=== PATIENT | male | born 1935 | race Caucasian/White ===

== ENCOUNTER 2020-09-27 | Outpatient (REF) | payer MEDICARE, OTHER, SELFPAY | END 2020-09-27 00:01 | disposition home or self-care (01) | LOC: HO.VC | PROVIDERS: Visit Provider Internal Medicine | DX: Z23 Encounter for immunization (principal) | CPT/HCPCS: 0011A ==

== ENCOUNTER 2020-10-24 | Outpatient (REF) | payer MEDICARE, OTHER, SELFPAY | END 2020-10-24 00:01 | disposition home or self-care (01) | LOC: HO.VC | PROVIDERS: Visit Provider Internal Medicine | DX: Z23 Encounter for immunization (principal) | CPT/HCPCS: 0012A ==

== ENCOUNTER 2020-11-22 10:35 | Outpatient (REF) | payer MEDICARE, OTHER, SELFPAY ==
--- NOTE | ~2020-11-22 | XR_ITS ---
EXAMINATION: XR knee LT 3V CLINICAL INFORMATION: Reason for Exam M25.562 - Pain in left knee COMPARISON: None available at the time of this dictation. TECHNIQUE: frontal, lateral, tunnel and patella sunrise views FINDINGS: BONES: No fracture or dislocation is present. JOINTS: Narrowing of joint spaces and developed osteophytes from the edges of articular surfaces suggest degenerative osteoarthritis. There is a small knee joint effusion. 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 There are vascular calcifications. There is small knee joint effusion.
--- NOTE | ~2020-11-22 | XR_ITS ---
EXAMINATION: XR LUMBOSACRAL SPINE CLINICAL INFORMATION: Pain COMPARISON: Previous x-ray July 2010 TECHNIQUE: Three views of the lumbosacral spine. FINDINGS: There is curvature of the lumbar spine to the left. Bone alignment is otherwise normal. No fracture or dislocation is seen. There is evidence of multilevel degenerative disc disease, spondylosis and facet arthritis. There is evidence of atherosclerotic disease. XR/XR lumbar spine 2-3V IMPRESSION: Curvature of the lumbar spine to the left. Multilevel degenerative spondylosis, degenerative disc disease and facet arthritis. No fracture seen.
[2020-11-25 13:31] LABS: Levetiracetam Keppra 34.5 mcg/mL (12.0-46.0)
== END 2020-11-22 10:36 | disposition home or self-care (01) ==
LOC: HO.LAB 10:35
PROVIDERS: PCP Internal Medicine; Visit Provider Internal Medicine
DX: G40.909 Epilepsy, unspecified, not intractable, without status epilepticus (principal); M54.5 Low back pain; M25.562 Pain in left knee
CPT/HCPCS: 36415; 72100; 73562; 80177

== ENCOUNTER 2021-02-19 13:47 | Outpatient (RCR) | payer MEDICARE, OTHER, SELFPAY | END 2021-03-07 12:41 | disposition home or self-care (01) | LOC: HO.WCC 13:47 | PROVIDERS: PCP Internal Medicine; Visit Provider Physician Assistant | DX: S21.211A Laceration without foreign body of right back wall of thorax without penetration into thoracic cavity, initial encounter (principal); C44.529 Squamous cell carcinoma of skin of other part of trunk | CPT/HCPCS: 11106; 88304; 88305; 99212; 99213 ==

== ENCOUNTER → 2021-03-20 15:18 | Outpatient (BNVA) | payer MEDICARE, OTHER, SELFPAY | PROVIDERS: PCP Internal Medicine; Referring Provider Internal Medicine; Visit Provider Surgery | DX: C44.519 Basal cell carcinoma of skin of other part of trunk (principal); I10 Essential (primary) hypertension; E78.00 Pure hypercholesterolemia, unspecified; E55.9 Vitamin D deficiency, unspecified; Z88.5 Allergy status to narcotic agent; Z95.2 Presence of prosthetic heart valve | CPT/HCPCS: 99202 ==

== ENCOUNTER 2021-04-12 08:50 | Outpatient (REF) | payer MEDICARE, OTHER, SELFPAY ==
[2021-04-12 08:59] VITALS: BP 153/75; PULSE 60; RESP 16; TEMP 36.5; O2SAT 96
[2021-04-12 09:00] VITALS: BMI 22.2
--- NOTE | 2021-04-12 10:10 | P.OP_ITS ---
Operative Note Operative Note Date of Service: 04/12/21 Narrative: Preoperative diagnosis: Basal cell carcinoma of back Postoperative diagnosis: Same Procedure: Wide excision of basal cell carcinoma of right upper back, wide excision of lesion left lower back Surgeon: Mohsen Zamorano MD [employer]: No physician Anesthesia: Local Indications for procedure: 85-year-old male patient presenting with 2 nonhealing back wounds, 1 of which was found to have a basal cell carcinoma located at the right upper mid back a 2nd lesion which appears similar is located in the left lower back. He presents for excision of both lesions. Operative findings: Right mid back lesion measures 2 cm in diameter, left lower lesion measures approximately 1.5 cm in diameter. Specimen: Skin lesion of right mid back and left lower back Estimated blood loss: 10 mL Complications: None Procedure details: Patient was brought to the minor surgery suite placed in a prone position. The site of 2 lesions in the back were identified and confirmed by the patient. Informed consent was confirmed by the patient. The skin was prepped with Betadine and draped in a sterile fashion. Local anesthesia consisting of 1% lidocaine with epinephrine was infiltrated circumferentially around both lesions. Beginning in the right mid back lesion an elliptical incision was created using a 15 blade. This carried out through subcutaneous tissue. Margins of 5 mm was performed on the lesion there for the diameter was approximately 3 cm. The lesion was completely excised and sent to pathology for further examination. Dermis was then reapproximated using interrupted 3-0 Polysorb sutures and skin closed using interrupted 3-0 nylon sutures. Attention was then directed to the lesion in the left lower back. This again was excised using a 0.5 cm margin. Total excision size was 2 cm. Incision was carried out through subcutaneous tissue and around the lesion dermis was then reapproximated using interrupted 3-0 Polysorb sutures. Skin was closed using interrupted 3-0 nylon sutures. Sterile dressings consisting of 4 x 4 gauze and Tegaderm were then applied. The patient tolerated the procedure well. Sponge, instrument, needle counts reported as correct. Patient was discharged to home i n stable condition.
== END 2021-04-12 08:51 | disposition home or self-care (01) ==
LOC: HO.MS 08:50
PROVIDERS: PCP Internal Medicine; Visit Provider Surgery
PROC: (CPT 11603; principal; 2021-04-12 09:15)
DX: C44.519 Basal cell carcinoma of skin of other part of trunk (principal)
CPT/HCPCS: 11603; 11602; 88305

== ENCOUNTER → 2021-04-20 10:08 | Outpatient (BNVA) | payer MEDICARE, OTHER, SELFPAY | PROVIDERS: PCP Internal Medicine; Referring Provider Internal Medicine; Visit Provider Surgery | DX: C44.519 Basal cell carcinoma of skin of other part of trunk (principal); E78.00 Pure hypercholesterolemia, unspecified; E55.9 Vitamin D deficiency, unspecified; Z88.5 Allergy status to narcotic agent | CPT/HCPCS: 99212 ==

== ENCOUNTER → 2021-05-18 09:19 | Outpatient (BNVA) | payer MEDICARE, OTHER, SELFPAY | PROVIDERS: PCP Internal Medicine; Referring Provider Internal Medicine; Visit Provider Surgery | DX: Z48.3 Aftercare following surgery for neoplasm (principal); C44.519 Basal cell carcinoma of skin of other part of trunk | CPT/HCPCS: 99212 ==

== ENCOUNTER 2021-08-07 12:06 | Outpatient (REF) | payer MEDICARE, OTHER, SELFPAY ==
[2021-08-07 13:50] LABS: MANUAL DIFF FLAG NO
[2021-08-07 13:52] LABS: Appearance Urine CLEAR; Color Urine YELLOW; Glucose Urine UA NEG (NEG); Leukocyte Esterase Urine NEG (NEG); Nitrite Urine NEG (NEG); Specific Gravity - Urine >= 1.030 (1.005-1.025); UACC Culture Trigger NO; Urine Blood NEG (NEG); Urine Ketones NEG (NEG); Urine Protein 1+ MG/DL (NEG-TRACE)
[2021-08-07 13:55] LABS: Basophils Percent Auto 0.2 % (0-2); Eosinophils Absolute Auto 0.1 X10*3/uL (0.0-0.4); Eosinophils Percent Auto 2.3 % (0-4); Hematocrit 40.2 % (42.0-52.0); Hemoglobin 12.6 g/dl (14.0-18.0); Imm Gran Abs Auto 0.01 X10*3/uL (0.00-0.03); Imm Gran Pct Auto 0.2 % (0.0-0.4); Lymphocytes Absolute Auto 1.2 X10*3/uL (1.2-4.9); Lymphocytes Percent Auto 28.2 % (20-40); Mean Corpuscular HGB Conc 31.3 g/dl (31.0-36.0); Mean Corpuscular Hemoglobin 29.4 pg (27.0-33.0); Mean Corpuscular Volume 93.7 fL (80.0-98.0); Mean Platelet Volume 11.4 fL (9.4-12.4); Monocytes Absolute Auto 0.4 X10*3/uL (0.1-1.2); Monocytes Percent Auto 9.1 % (2-11); Neutrophils Absolute Auto 2.6 x10*3/uL (2.0-8.3); Platelet Count 191 X10*3/uL (160-400); Red Blood Count 4.29 X10*6/uL (4.60-5.80); White Blood Count 4.4 X10*3/uL (4.8-10.8)
[2021-08-07 14:06] LABS: Mucus Urine 1+ /LPF
[2021-08-07 14:07] LABS: Hyaline Casts Urine 0-2 /LPF; WBC Urine 0-2 /HPF (0-4)
[2021-08-07 14:08] LABS: RBC Urine 0 /HPF (0)
[2021-08-07 14:32] LABS: Alanine Aminotransferase 54 U/L (0-40); Albumin Level 4.1 g/dL (3.5-5.0); Alkaline Phosphatase 137 U/L (39-117); Anion Gap 13 (12-20); Aspartate Amino Transferase 50 U/L (5-37); Bilirubin Total 0.6 mg/dL (0.0-1.0); Blood Urea Nitrogen 20 mg/dL (9-16); Calcium 9.4 mg/dL (8.4-10.2); Carbon Dioxide 25 mmol/L (22-29); Chloride 108 mmol/L (96-108); Cholesterol 161 mg/dL; Estimated Glomerular Filt Rate 56; Glucose Fasting 117 mg/dL (60-99); HDL Cholesterol 50 mg/dL; LDL Cholesterol Calculated 90 mg/dl; Potassium 4.3 mmol/L (3.3-5.1); Sodium 142 mmol/L (135-145); Triglycerides 108 mg/dL
[2021-08-07 14:40] LABS: TSH reflex Free T4 1.17 uIU/mL (0.32-4.0); Vitamin D 25-OH Total 14.9 ng/mL (>30)
[2021-08-07 14:53] LABS: Folate > 20.0 ng/mL (> or = 4.0); Vitamin B12 353 pg/mL (200-900)
== END 2021-08-07 12:07 | disposition home or self-care (01) ==
LOC: HO.HMGCLDS 12:06
PROVIDERS: PCP Internal Medicine; Visit Provider Internal Medicine
DX: I10 Essential (primary) hypertension (principal); E55.9 Vitamin D deficiency, unspecified; E53.8 Deficiency of other specified B group vitamins; E78.00 Pure hypercholesterolemia, unspecified
CPT/HCPCS: 36415; 80053; 80061; 81001; 82306; 82607; 82746; 84443; 85025

== ENCOUNTER 2021-09-06 12:39 | Outpatient (REF) | payer MEDICARE, OTHER, SELFPAY ==
[2021-09-06 13:58] LABS: MANUAL DIFF FLAG NO
[2021-09-06 14:05] LABS: Basophils Absolute Auto 0.1 X10*3/uL (0.0-0.2); Basophils Percent Auto 0.9 % (0-2); Eosinophils Absolute Auto 0.2 X10*3/uL (0.0-0.4); Eosinophils Percent Auto 2.9 % (0-4); Hematocrit 36.6 % (42.0-52.0); Hemoglobin 11.7 g/dl (14.0-18.0); Imm Gran Abs Auto 0.02 X10*3/uL (0.00-0.03); Imm Gran Pct Auto 0.4 % (0.0-0.4); Lymphocytes Percent Auto 18.6 % (20-40); Mean Corpuscular Volume 93.8 fL (80.0-98.0); Mean Platelet Volume 11.7 fL (9.4-12.4); Monocytes Absolute Auto 0.7 X10*3/uL (0.1-1.2); Monocytes Percent Auto 12.3 % (2-11); Neutrophils Absolute Auto 3.6 x10*3/uL (2.0-8.3); Neutrophils Percent Auto 64.9 % (45-73); Platelet Count 200 X10*3/uL (160-400); Red Cell Distribution Width 14.8 % (11.0-16.0); White Blood Count 5.5 X10*3/uL (4.8-10.8)
[2021-09-06 14:22] LABS: Appearance Urine CLEAR; Color Urine YELLOW; Glucose Urine UA NEG (NEG); Leukocyte Esterase Urine NEG (NEG); Nitrite Urine NEG (NEG); PH 5.5 (5.0-8.0); Urine Blood NEG (NEG); Urine Ketones NEG (NEG); Urine Protein NEG (NEG-TRACE)
[2021-09-06 14:30] LABS: B Type Natriuretic Peptide 159 pg/mL (<100)
[2021-09-06 14:46] LABS: Alanine Aminotransferase 18 U/L (0-40); Albumin Level 3.5 g/dL (3.5-5.0); Alkaline Phosphatase 109 U/L (39-117); Anion Gap 9 (12-20); Aspartate Amino Transferase 24 U/L (5-37); Bilirubin Total 0.6 mg/dL (0.0-1.0); Blood Urea Nitrogen 30 mg/dL (9-16); Calcium 9.4 mg/dL (8.4-10.2); Carbon Dioxide 30 mmol/L (22-29); Chloride 106 mmol/L (96-108); Cholesterol 180 mg/dL; Estimated Glomerular Filt Rate 37; Glucose Fasting 132 mg/dL (60-99); HDL Cholesterol 45 mg/dL; LDL Cholesterol Calculated 110 mg/dl; Potassium 4.7 mmol/L (3.3-5.1); Sodium 140 mmol/L (135-145); Total Protein 6.4 g/dL (6.5-8.0); Triglycerides 128 mg/dL
[2021-09-06 14:55] LABS: TSH reflex Free T4 1.28 uIU/mL (0.32-4.0); Vitamin D 25-OH Total 16.7 ng/mL (>30)
== END 2021-09-06 12:40 | disposition home or self-care (01) ==
LOC: HO.HMGCLDS 12:39
PROVIDERS: PCP Internal Medicine; Visit Provider Internal Medicine
DX: E78.00 Pure hypercholesterolemia, unspecified (principal); E55.9 Vitamin D deficiency, unspecified; I11.0 Hypertensive heart disease with heart failure; I50.9 Heart failure, unspecified
CPT/HCPCS: 36415; 80053; 80061; 81003; 82306; 83880; 84443; 85025

== ENCOUNTER 2021-12-17 09:56 | Outpatient (REF) | payer MEDICARE, OTHER, SELFPAY ==
[2021-12-17 11:35] LABS: MANUAL DIFF FLAG NO
[2021-12-17 12:00] LABS: Basophils Absolute Auto 0.1 X10*3/uL (0.0-0.2); Basophils Percent Auto 0.6 % (0-2); Eosinophils Absolute Auto 0.4 X10*3/uL (0.0-0.4); Eosinophils Percent Auto 4.3 % (0-4); Estimated Average Glucose 117 mg/dL; Hematocrit 39.2 % (42.0-52.0); Hemoglobin 12.4 g/dl (14.0-18.0); Hemoglobin A1c % 5.7 %; Imm Gran Abs Auto 0.03 X10*3/uL (0.00-0.03); Imm Gran Pct Auto 0.4 % (0.0-0.4); Lymphocytes Percent Auto 11.7 % (20-40); Mean Corpuscular HGB Conc 31.6 g/dl (31.0-36.0); Mean Corpuscular Hemoglobin 29.5 pg (27.0-33.0); Mean Corpuscular Volume 93.3 fL (80.0-98.0); Mean Platelet Volume 11.4 fL (9.4-12.4); Monocytes Absolute Auto 0.9 X10*3/uL (0.1-1.2); Monocytes Percent Auto 11.4 % (2-11); Neutrophils Absolute Auto 5.8 x10*3/uL (2.0-8.3); Neutrophils Percent Auto 71.6 % (45-73); Platelet Count 184 X10*3/uL (160-400); Red Cell Distribution Width 13.2 % (11.0-16.0); White Blood Count 8.1 X10*3/uL (4.8-10.8)
[2021-12-17 12:24] LABS: B Type Natriuretic Peptide 306 pg/mL (<100)
[2021-12-17 12:28] LABS: Alanine Aminotransferase 9 U/L (0-40); Albumin Level 3.7 g/dL (3.5-5.0); Alkaline Phosphatase 121 U/L (39-117); Anion Gap 11 (12-20); Appearance Urine CLEAR; Aspartate Amino Transferase 17 U/L (5-37); Blood Urea Nitrogen 17 mg/dL (9-16); Calcium 9.2 mg/dL (8.4-10.2); Carbon Dioxide 27 mmol/L (22-29); Chloride 106 mmol/L (96-108); Cholesterol 205 mg/dL; Color Urine YELLOW; Estimated Glomerular Filt Rate > 60; Glucose Fasting 85 mg/dL (60-99); Glucose Urine UA NEG (NEG); HDL Cholesterol 54 mg/dL; LDL Cholesterol Calculated 132 mg/dl; Leukocyte Esterase Urine NEG (NEG); Nitrite Urine NEG (NEG); PH 6.5 (5.0-8.0); Potassium 4.3 mmol/L (3.3-5.1); Sodium 140 mmol/L (135-145); Specific Gravity - Urine 1.015 (1.005-1.025); Total Protein 6.5 g/dL (6.5-8.0); Triglycerides 95 mg/dL; Urine Blood NEG (NEG); Urine Ketones NEG (NEG); Urine Protein NEG (NEG-TRACE)
[2021-12-17 12:31] LABS: TSH reflex Free T4 0.99 uIU/mL (0.32-4.0); Vitamin D 25-OH Total 12.9 ng/mL (>30)
[2021-12-17 12:37] LABS: Folate 8.7 ng/mL (> or = 4.0); Vitamin B12 204 pg/mL (200-900)
== END 2021-12-17 09:57 | disposition home or self-care (01) ==
LOC: HO.HMGCLDS 09:56
PROVIDERS: Visit Provider Internal Medicine
DX: I11.0 Hypertensive heart disease with heart failure (principal); I50.9 Heart failure, unspecified; E55.9 Vitamin D deficiency, unspecified; E53.8 Deficiency of other specified B group vitamins; E78.00 Pure hypercholesterolemia, unspecified; R73.01 Impaired fasting glucose
CPT/HCPCS: 36415; 80053; 80061; 81003; 82306; 82607; 82746; 83036; 83880; 84443; 85025

== ENCOUNTER 2022-10-09 10:45 | Outpatient (REF) | payer MEDICARE, OTHER, SELFPAY ==
[2022-10-09 14:01] LABS: MANUAL DIFF FLAG NO
[2022-10-09 14:13] LABS: Appearance Urine Clear; Basophils Absolute Auto 0.1 X10*3/uL (0.0-0.2); Basophils Percent Auto 0.7 % (0-2); Color Urine Yellow; Eosinophils Absolute Auto 0.2 X10*3/uL (0.0-0.4); Eosinophils Percent Auto 2.4 % (0-4); Glucose Urine UA Negative (Negative); Hematocrit 37.5 % (42.0-52.0); Hemoglobin 11.9 g/dl (14.0-18.0); Imm Gran Abs Auto 0.02 X10*3/uL (0.00-0.03); Imm Gran Pct Auto 0.3 % (0.0-0.4); Leukocyte Esterase Urine Negative (Negative); Lymphocytes Absolute Auto 1.4 X10*3/uL (1.2-4.9); Lymphocytes Percent Auto 20.4 % (20-40); Mean Corpuscular HGB Conc 31.7 g/dl (31.0-36.0); Mean Corpuscular Hemoglobin 29.6 pg (27.0-33.0); Mean Corpuscular Volume 93.3 fL (80.0-98.0); Monocytes Absolute Auto 0.8 X10*3/uL (0.1-1.2); Monocytes Percent Auto 11.5 % (2-11); Neutrophils Absolute Auto 4.6 x10*3/uL (2.0-8.3); Neutrophils Percent Auto 64.7 % (45-73); Nitrite Urine Negative (Negative); Platelet Count 237 X10*3/uL (160-400); Red Blood Count 4.02 X10*6/uL (4.60-5.80); Red Cell Distribution Width 13.4 % (11.0-16.0); Specific Gravity - Urine 1.015 (1.005-1.025); Urine Blood Negative (Negative); Urine Ketones Negative (Negative); Urine Protein Negative (Neg-Trace); White Blood Count 7.1 X10*3/uL (4.8-10.8)
[2022-10-09 14:44] LABS: Alanine Aminotransferase 10 U/L (0-40); Albumin Level 3.6 g/dL (3.5-5.0); Alkaline Phosphatase 130 U/L (39-117); Anion Gap 15 (12-20); Aspartate Amino Transferase 19 U/L (5-37); Bilirubin Total 0.5 mg/dL (0.0-1.0); Blood Urea Nitrogen 21 mg/dL (9-16); Carbon Dioxide 25 mmol/L (22-29); Chloride 109 mmol/L (96-108); Cholesterol 209 mg/dL; Estimated Glomerular Filt Rate > 60; Glucose Fasting 98 mg/dL (60-99); HDL Cholesterol 55 mg/dL; LDL Cholesterol Calculated 136 mg/dl; Potassium 4.4 mmol/L (3.3-5.1); Sodium 145 mmol/L (135-145); Total Protein 6.1 g/dL (6.5-8.0); Triglycerides 90 mg/dL
[2022-10-09 15:03] LABS: Folate 9.2 ng/mL (> or = 4.0); TSH reflex Free T4 1.46 uIU/mL (0.32-4.0); Vitamin B12 242 pg/mL (200-900); Vitamin D 25-OH Total 7.1 ng/mL (>30)
[2022-10-13 16:38] LABS: Levetiracetam Keppra 41.2 mcg/mL (6.0-46.0)
== END 2022-10-09 10:46 | disposition home or self-care (01) ==
LOC: HO.HMGCLDS 10:45
PROVIDERS: Visit Provider Internal Medicine
DX: I10 Essential (primary) hypertension (principal); E78.00 Pure hypercholesterolemia, unspecified; E55.9 Vitamin D deficiency, unspecified; G40.909 Epilepsy, unspecified, not intractable, without status epilepticus; E53.8 Deficiency of other specified B group vitamins; R41.3 Other amnesia; R30.0 Dysuria
CPT/HCPCS: 36415; 80053; 80061; 80177; 81003; 82306; 82607; 82746; 84443; 85025

== ENCOUNTER 2023-04-12 11:32 | Outpatient (AMB) | payer MEDICARE, OTHER, SELFPAY ==
[2023-04-12 12:58] VITALS: BP 138/76; PULSE 70; TEMP 36.6; O2SAT 98; BMI 21.4
--- NOTE | 2023-04-12 12:58 | AM.OFFWIN_ITS ---
Intake Vital Signs 04/12/23 12:58 Height 5 ft 10 in Weight 149 lb BMI 21.4 BP 138/76 Blood Pressure Location Lt brachial Position Sitting Pulse 70 Pulse Source Pulse Oximeter Temp 97.8 F Temp Source Temporal Artery Scan Pulse Oximetry (%) 98 Intake Visit Reasons: EP Rash Intake Note: pt is here for c/o rash Patient Tobacco Use Status: Never used Tobacco Allergies morphine Allergy (Unknown, Verified 04/12/23 12:58) nausea and vomiting oxycodone Allergy (Unknown, Verified 04/12/23 12:58) nausea and vomiting Do you need a note to return to daycare/school/sports/work: No HPI EP Rash HPI Details Patient is a is an 87-year-old male comes to the walk-in clinic complaining of pruritic rash to both his hands, with the left worse than the right, the forearms his collarbone area, and to his lower legs bilaterally. He states he lives at home with his who keeps his house and back complete c lean, however he did have a brace today it rehab and was discharged a little while prior to the symptoms starting. No prior history of rash. Denies allergies. States that it is exceptionally itchy, especially at night, and he is unable to stop scratching it. No report of fever chills, malaise or myalgias, or other significant associated symptoms. [facility] Medical History Benign essential hypertension COPD (chronic obstructive pulmonary disease) DISH (diffuse idiopathic skeletal hyperostosis) Epilepsy GERD without esophagitis HFrEF (heart failure with reduced ejection fraction) Impaired fasting glucose Keratotic lesion Left knee pain Low back pain Overweight (BMI 25.0-29.9) Pure hypercholesterolemia Vitamin D deficiency Surgical History Aortic valve replaced History of carpal tunnel release History of inguinal hernia repair Hx of cervical discectomy S/P hip arthroscopy Family History Father Cancer Mother Medical history unknown Social History Housing: House Alcohol intake: former Patient Tobacco Use Status: Never used Tobacco e-Cigarette/Vaping Use: Never Used Second Hand Smoke Exposure: Yes service: No Current occupational status: retired Cognitive needs: No Hearing needs: No Vision needs: Yes (reading glasses) Review of Systems Const All systems reviewed & are unremarkable except as noted in HPI and below Physical Exam Vital Signs: Last Vital Signs Temp 97.8 F 04/12/23 12:58 Pulse 70 04/12/23 12:58 BP 138/76 04/12/23 12:58 Pulse Ox 98 04/12/23 12:58 BMI result Body Mass Index 21.4 Skin Other: Patient has an excoriated and thickened pruritic maculopapular rash, most notably to the hands and feet/chau areas, that is open in some areas due to his scratching. There is some surrounding erythema and edema, especially to the toes. Assessment & Plan Assessment & Plan (1) Pruritic erythematous rash: Code(s): L29.8 - Other pruritus Plan Patient recently released from rehab, and states that symptoms started soon afterwards. The rash appears to be a scabies infestation to the left foot, left hand, as well as less so to the right hand and to his left collarbone area. There are few areas that are extremely thickened and excoriated, and warm to the touch, so a course of bailey Keflex was written also. He should consider probiotic use with this. He states that his keeps his home exceptionally clean, and we discussed continuing to clean well, as well as washing linen and clothes in hot water and high heat stock drier tender. I wrote him for permethrin cream, and he will use tonight, sparing the face, and again in 2 weeks if it seems like there is still a live infestation persisting. He does have a boardinghouse keeper appointment in just 4 days, so fortunately he will have further evaluation for this. But he knows that he can follow-up at the walk-in in the meantime as needed. Medications: New cephalexin 500 mg PO BID 10 days 20 caps 0RF permethrin 5% apply second treatment 14 days after first treatment if live lice remain 1 appl topical Q14D 60 grams 0RF hydroxyzine pamoate (Vistaril) 25 mg PO BEDTIME PRN 20 caps 0RF itching Coding Level of Care Code Est Pt Level 4 (98185) Diagnoses Pruritic erythematous rash L29.8
== END 2023-04-12 14:30 | disposition home or self-care (01) ==
PROVIDERS: PCP Internal Medicine; Visit Provider Physician Assistant Medical
DX: L29.8 Other pruritus (principal)
CPT/HCPCS: 99214

== ENCOUNTER 2023-04-24 14:30 | Outpatient (AMB) | payer MEDICARE, OTHER, SELFPAY ==
[2023-04-24 14:32] VITALS: BP 122/86; PULSE 66; O2SAT 92; BMI 21.8
--- NOTE | 2023-04-24 14:32 | MHC.PC.OV ---
Vital Signs 04/24/23 14:32 04/24/23 15:00 Height 5 ft 10 in Weight 152 lb BMI 21.8 BP 122/86 Blood Pressure Location Lt brachial Position Sitting Pulse 66 92 Pulse Source Pulse Oximeter Palpation Temp Source Skin Pulse Oximetry (%) 92 Oxygen Delivery Method Room Air Intake Visit Reasons: SOB, swollen ankles Intake Note: pt states bilateral ankle swelling X1 month and SOB Ripening Room Hand Required: No Allergies morphine Allergy (Unknown, Verified 04/24/23 14:43) nausea and vomiting oxycodone Allergy (Unknown, Verified 04/24/23 14:43) nausea and vomiting Medication List - Last Reconciled 04/24/23 by LOLA Whitfield albuterol sulfate 90 mcg/actuation 2 puffs PO TID-QID PRN apixaban (Eliquis) 2.5 mg PO BID carvedilol 12.5 mg PO BID cholecalciferol (vitamin D3) 25 mcg PO DAILY donepezil 10 mg PO BEDTIME 90 days fluticasone propion-salmeterol 250-50 mcg/dose (Advair Diskus) 1 inh inhalation BID furosemide 20 mg PO DAILY 90 days hydroxyzine pamoate (Vistaril) 25 mg PO BEDTIME PRN levetiracetam 500 mg PO BID Lipitor (atorvastatin) 40 mg PO DAILY 90 days NS lorazepam Take 1 tablet 30 minutes before procedure as needed for anxiety. May repeat x 1 dose after 10 to 15 minutes if needed. 1 day omeprazole 20 mg PO BID 90 days permethrin 5% 1 appl topical Q14D 2 doses tramadol 50 mg PO Q8H PRN 30 days Tobacco use date assessed: 04/24/23 Fall risk assessment: No Falls in past year Last assessed Fall Risk: 04/24/23 HPI SOB, swollen ankles HPI Details Patient is an 87-year-old male presents today for the same day visit due to shortness of breath with activity and swelling in ankles for the past [address] Parikh. Medical history significant for low back pain, GERD, hypercholesterolemia, COPD, hypertension, heart failure, memory impairment among others. Patient reports that he is followed by pulmonology due to COPD at [facility]. Patient reports that he was in the hospital 02/2023 [facility] for dizziness, some paperwork available from [facility], patient was diagnosed with atrial flutter and started on Eliquis, his carvedilol was increased to 12.5 mg b.i.d.. Ejection fraction 30-40%. Patient reports that he has cardiology at [facility] and he will be seen them in 2 weeks, will request records from cardiology. Also patient reports that his Lasix was stopped in the hospital although when reviewing hospital note patient should continue on Lasix daily p.r.n.. Today, patient reports he had nurse come to his house and he told her about his symptoms and nurse was concerned and told him to follow-up with provider. Patient denies chest pain or wheezing, reports shortness of breath on exertion, and swelling in his ankles, he never had swelling in his ankles before. [facility] Medical History Benign essential hypertension COPD (chronic obstructive pulmonary disease) DISH (diffuse idiopathic skeletal hyperostosis) Epilepsy GERD without esophagitis HFrEF (heart failure with reduced ejection fraction) Impaired fasting glucose Keratotic lesion Left knee pain Low back pain Overweight (BMI 25.0-29.9) Pure hypercholesterolemia Vitamin D deficiency Surgical History Aortic valve replaced History of carpal tunnel release History of inguinal hernia repair Hx of cervical discectomy S/P hip arthroscopy Family History Father Cancer Mother Medical history unknown Social History Housing: House Alcohol intake: former Patient Tobacco Use Status: Never used Tobacco e-Cigarette/Vaping Use: Never Used Second Hand Smoke Exposure: Yes service: No Current occupational status: retired Cognitive needs: No Hearing needs: No Vision needs: Yes (reading glasses) Questionnaire Thrive Questionnaire Date Thrive assessed: 02/03/23 AUDIT C Alcohol Use Questionnaire (AUDIT-C) 1. How often do you have a drink containing alcohol?: Never 3. How often do you have six or more drinks on one occasion?: Never Total Score: 0 Score Reviewed/Action Taken: No CHARLY-7 AMB Questionnaire CHARLY-7 Date CHALRY - 7 assessed: 02/03/23 Source: Developed by Drs. Arthur Mittal, Farzana Cervantes, Bladimir Shah and colleagues, with an educational sumaya from [employer]. Review of Systems Const Denies body aches, Denies chills, Denies fever(s) and Denies headache(s) Eyes Denies change in vision ENT Denies dizziness, Denies otalgia, Denies headache(s), Denies nasal discharge, Denies sinus pain and Denies sore throat Card Denies chest pain, Denies edema, Reports leg edema, Denies lightheadedness, Denies dyspnea and Reports dyspnea on exertion Resp Denies cough, Denies dyspnea, Reports dyspnea on exertion and Denies wheezing GI Denies abdominal pain Denies dysuria Musc Denies myalgias Skin/Breast Denies rash Neuro Denies dizziness and Denies headache(s) Aller/Immun Denies wheezing Physical exam (Primary Care) Vital Signs: Last Vital Signs Pulse 92 04/24/23 15:00 BP 122/86 04/24/23 14:32 Pulse Ox 92 04/24/23 14:32 Oxygen Delivery Method Room Air 04/24/23 14:32 BMI result Body Mass Index 21.8 Tobacco/Smoking Status: Tobacco use Status Tobacco use date assessed 04/24/23 04/24/23 14:52 Patient Tobacco Use Status Never used Tobacco 04/24/23 14:52 e-Cigarette/Vaping Use Never Used 04/24/23 14:52 Thrive Assessment: Date of Thrive Assessment Date Thrive assessed 02/03/23 04/24/23 14:52 Const General: cooperative and no acute distress Orientation/consciousness: patient oriented x3 HENMT Head: Yes normocephalic and Yes atraumatic Mouth: oropharynx normal and moist mucous membranes Throat: Yes posterior oropharynx normal Eyes General: appearance normal, both eyes and all related structures Pupils: Equal, round and reactive pupils present Neck Neck: Yes normal visual inspection, Yes full ROM and Yes no lymphadenopathy Resp Effort & Inspection: normal respiratory effort and able to speak in complete sentences Auscultation: clear to auscultation bilaterally, no crackles, no rales, no rhonchi and no wheezes Cardio Rate: regular rate Rhythm: regular rhythm Heart sounds: S1 normal heart sound present, S2 normal heart sound present and no murmurs GI Auscultation: normal bowel sounds Neuro General: patient oriented x3 Cranial nerves: Yes Equal, round and reactive pupils present Gait exam (Neuro): Normal gait present Extrem Other: Bilateral ankle with trace edema General: Yes full ROM Assessment and Plan Assessment & Plan (1) Dyspnea: Code(s): R06.00 - Dyspnea, unspecified Plan: Will obtain chest x-ray Blood work Continue inhalers p.r.n. Continue to follow-up with pulmonology at [facility] (2) HFrEF (heart failure with reduced ejection fraction): Code(s): I50.20 - Unspecified systolic (congestive) heart failure Plan: EF 30-40% 02/2023 Lungs are clear to auscultation, bilateral ankle with trace edema Blood work and chest x-ray ordered Will obtain records from [facility] cardiology-patient reports next appointment in 2 weeks Patient reports he has not been taking his Lasix for the past 1 month, according to discharge notes patient still should be on Lasix daily p.r.n. Patient is to start Lasix 20 mg daily for 3 days and call his Cardiology for clarification Signs and symptoms reviewed when to notify provider go to the emergency department (3) Atrial flutter: Code(s): I48.92 - Unspecified atrial flutter Plan: On Eliquis and carvedilol Plan Will notify up blood work results and chest x-ray Signs and symptoms reviewed when to notify provider or go to the emergency department. Patient agreed with the plan. Orders: Orders Complete Blood Count Auto Diff Today R06.00 - Dyspnea, unspecified B Type Natriuretic Peptide Today R06.00 - Dyspnea, unspecified Comprehensive Met. Panel Today R06.00 - Dyspnea, unspecified XR chest 2V Today R06.00 - Dyspnea, unspecified Coding Level of Care Code Est Pt Level 3 (37053) Diagnoses Dyspnea R06.00 HFrEF (heart failure with reduced ejection fraction) I50.20 Atrial flutter I48.92
[2023-04-24 15:00] VITALS: PULSE 92
== END 2023-04-24 15:56 | disposition home or self-care (01) ==
PROVIDERS: PCP Internal Medicine; Visit Provider Nurse Practitioner Family
DX: R06.00 Dyspnea, unspecified (principal); I50.20 Unspecified systolic (congestive) heart failure; I48.92 Unspecified atrial flutter
CPT/HCPCS: 99213

== ENCOUNTER 2023-04-24 15:22 | Outpatient (REF) | payer MEDICARE, OTHER, SELFPAY ==
--- NOTE | ~2023-04-24 | XR_ITS ---
EXAMINATION: XR CHEST CLINICAL INFORMATION: Are 87-year-old male with shortness of breath Referral COMPARISON: 07/25/2016 TECHNIQUE: 2 views of the chest were obtained. FINDINGS: Patient is status post median sternotomy for CABG procedure. There is low lung volume bilaterally with small bilateral pleural effusion and fluid seen in the fissures. There is vascular redistribution. No evidence of infiltrates. XR/XR chest 2V IMPRESSION: CHF with pleural effusion.
[2023-04-24 15:55] LABS: MANUAL DIFF FLAG NO
[2023-04-24 16:31] LABS: Basophils Absolute Auto 0.1 X10*3/uL (0.0-0.2); Basophils Percent Auto 0.6 % (0-2); Eosinophils Absolute Auto 0.2 X10*3/uL (0.0-0.4); Eosinophils Percent Auto 2.2 % (0-4); Hematocrit 37.2 % (42.0-52.0); Imm Gran Abs Auto 0.03 X10*3/uL (0.00-0.03); Imm Gran Pct Auto 0.3 % (0.0-0.4); Lymphocytes Absolute Auto 1.4 X10*3/uL (1.2-4.9); Lymphocytes Percent Auto 13.7 % (20-40); Mean Corpuscular HGB Conc 32.3 g/dl (31.0-36.0); Mean Corpuscular Hemoglobin 29.4 pg (27.0-33.0); Mean Corpuscular Volume 91.2 fL (80.0-98.0); Mean Platelet Volume 10.4 fL (9.4-12.4); Monocytes Absolute Auto 0.9 X10*3/uL (0.1-1.2); Monocytes Percent Auto 8.2 % (2-11); Neutrophils Absolute Auto 7.9 x10*3/uL (2.0-8.3); Platelet Count 293 X10*3/uL (160-400); Red Blood Count 4.08 X10*6/uL (4.60-5.80); Red Cell Distribution Width 15.1 % (11.0-16.0); White Blood Count 10.5 X10*3/uL (4.8-10.8)
[2023-04-24 17:02] LABS: B Type Natriuretic Peptide 363 pg/mL (<100)
[2023-04-24 17:12] LABS: Alanine Aminotransferase 13 U/L (0-40); Albumin Level 3.8 g/dL (3.5-5.0); Alkaline Phosphatase 146 U/L (39-117); Anion Gap 15 (12-20); Aspartate Amino Transferase 19 U/L (5-37); Bilirubin Total 0.6 mg/dL (0.0-1.0); Blood Urea Nitrogen 21 mg/dL (9-16); Calcium 9.7 mg/dL (8.4-10.2); Carbon Dioxide 22 mmol/L (22-29); Chloride 108 mmol/L (96-108); Estimated Glomerular Filt Rate > 60; Glucose Random 100 mg/dL (60-115); Potassium 4.9 mmol/L (3.3-5.1); Sodium 140 mmol/L (135-145)
== END 2023-04-24 15:23 | disposition home or self-care (01) ==
LOC: HO.XRAY 15:22
PROVIDERS: Nurse Practitioner Family; PCP Internal Medicine; Visit Provider Internal Medicine
DX: R06.00 Dyspnea, unspecified (principal)
CPT/HCPCS: 36415; 71046; 80053; 83880; 85025

== ENCOUNTER 2023-05-26 09:24 | Outpatient (REF) | payer MEDICARE, OTHER, SELFPAY ==
[2023-05-26 11:28] LABS: Appearance Urine Clear; Color Urine Yellow; Glucose Urine UA Negative (Negative); Leukocyte Esterase Urine Negative (Negative); Nitrite Urine Negative (Negative); PH 5.5 (5.0-9.0); Urine Blood Negative (Negative); Urine Ketones Negative (Negative); Urine Protein Negative (Neg-Trace)
[2023-05-26 11:33] LABS: MANUAL DIFF FLAG NO
[2023-05-26 11:55] LABS: Basophils Absolute Auto 0.1 X10*3/uL (0.0-0.2); Basophils Percent Auto 0.5 % (0-2); Eosinophils Absolute Auto 0.2 X10*3/uL (0.0-0.4); Eosinophils Percent Auto 1.6 % (0-4); Hemoglobin 12.2 g/dl (14.0-18.0); Imm Gran Abs Auto 0.04 X10*3/uL (0.00-0.03); Imm Gran Pct Auto 0.4 % (0.0-0.4); Lymphocytes Absolute Auto 1.5 X10*3/uL (1.2-4.9); Lymphocytes Percent Auto 15.5 % (20-40); Mean Corpuscular HGB Conc 32.1 g/dl (31.0-36.0); Mean Corpuscular Hemoglobin 29.5 pg (27.0-33.0); Monocytes Absolute Auto 1.3 X10*3/uL (0.1-1.2); Monocytes Percent Auto 13.5 % (2-11); Neutrophils Absolute Auto 6.5 x10*3/uL (2.0-8.3); Neutrophils Percent Auto 68.5 % (45-73); Platelet Count 224 X10*3/uL (160-400); Red Blood Count 4.13 X10*6/uL (4.60-5.80); Red Cell Distribution Width 14.7 % (11.0-16.0); White Blood Count 9.4 X10*3/uL (4.8-10.8)
[2023-05-26 12:37] LABS: B Type Natriuretic Peptide 197 pg/mL (<100)
[2023-05-26 13:00] LABS: Alanine Aminotransferase 12 U/L (0-40); Albumin Level 3.6 g/dL (3.5-5.0); Alkaline Phosphatase 119 U/L (39-117); Anion Gap 12 (12-20); Aspartate Amino Transferase 17 U/L (5-37); Blood Urea Nitrogen 29 mg/dL (9-16); Calcium 9.3 mg/dL (8.4-10.2); Carbon Dioxide 28 mmol/L (22-29); Chloride 103 mmol/L (96-108); Cholesterol 159 mg/dL (<200); Estimated Glomerular Filt Rate 47; Glucose Fasting 80 mg/dL (60-99); HDL Cholesterol 45 mg/dL (>40); LDL Cholesterol Calculated 96 mg/dL (<100); Potassium 3.9 mmol/L (3.3-5.1); Sodium 139 mmol/L (135-145); Total Protein 6.6 g/dL (6.5-8.0); Triglycerides 92 mg/dL (<150)
[2023-05-26 13:01] LABS: Vitamin D 25-OH Total 83.7 ng/mL (>30)
== END 2023-05-26 09:25 | disposition home or self-care (01) ==
LOC: HO.HMGCLDS 09:24
PROVIDERS: PCP Internal Medicine; Visit Provider Internal Medicine
DX: I11.0 Hypertensive heart disease with heart failure (principal); I50.9 Heart failure, unspecified; R30.0 Dysuria; E55.9 Vitamin D deficiency, unspecified; E78.00 Pure hypercholesterolemia, unspecified
CPT/HCPCS: 36415; 80053; 80061; 81003; 82306; 83880; 85025

== ENCOUNTER 2023-06-04 14:38 | Outpatient (AMB) | payer MEDICARE, OTHER, SELFPAY ==
[2023-06-04 14:47] VITALS: BP 116/76; PULSE 106; O2SAT 91; BMI 20.9
--- NOTE | 2023-06-04 14:47 | MHC.PC.OV ---
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 Accompanied by: Spouse Allergies morphine Allergy (Unknown, Verified 06/04/23 15:55) nausea and vomiting oxycodone Allergy (Unknown, Verified 06/04/23 15:55) nausea and vomiting Medication List - Last Reconciled 06/04/23 by Braxton Parikh MD albuterol sulfate 90 mcg/actuation 2 puffs PO TID-QID PRN apixaban (Eliquis) 2.5 mg PO BID carvedilol 12.5 mg PO BID cholecalciferol (vitamin D3) 25 mcg PO DAILY donepezil 10 mg PO BEDTIME 90 days fluticasone propion-salmeterol 250-50 mcg/dose (Advair Diskus) 1 inh inhalation BID furosemide 20 mg PO DAILY 90 days hydroxyzine pamoate (Vistaril) 25 mg PO BEDTIME PRN levetiracetam 500 mg PO BID Lipitor (atorvastatin) 40 mg PO DAILY 90 days NS lorazepam Take 1 tablet 30 minutes before procedure as needed for anxiety. May repeat x 1 dose after 10 to 15 minutes if needed. 1 day omeprazole 20 mg PO BID 90 days permethrin 5% 1 appl topical Q14D 2 doses tramadol 50 mg PO Q8H PRN 30 days Tobacco use date assessed: 06/04/23 Fall risk assessment: 1 Fall in past year Last assessed Fall Risk: 06/04/23 Dental Screening Dental Screen Date: 06/04/23 Did you have a dental visit in the last 12 months?: Yes Did you have a dental problem in the last 6 months where you did not have access to dental care?: No Was dental information given to patient?: Patient has dentist HPI hyperlipidemia, COPD, lumbar DDD, Cervical DDD HPI Details Patient comes in today for his follow up visit States that he feels okay and that his PT and VNA services were just extended for another 6 weeks He was admitted to [facility] for a few days early last month for apparent CHF exacerbation - BNP was over 5000 at the time - and was treated with IV Furosemide with significant improvement He currently remains on Furosemide 20 mg QD (Furosemide was previously discontinued in February 2023 for ZARA) Relates that he was seen by cardiology for follow up a few weeks ago and was started back on Valsartan at 40 mg QD (Valsartan was also previously discontinued during a hospital admission last year in 2021 for ZARA) States that he just took 1 dose of the 40 mg Valsartan and was asked to stop taking it immediately when his BP dropped too low and he started feeling very dizzy and weak Notes that he has been feeling okay since he stopped taking the medication He currently denies any headaches or dizziness Denies any chest pains; still has WOLF but states that he is able to manage his activities and he does stop and rest when he starts to get tired or SOB He is currently trying to downsize their house and selling it home as he and his plans to move into assisted living ([facility]) in [place] soon No nausea/vomiting, no abdominal pain No change in bowel habits noted He is still experiencing frequent joint pains and low back pain and is planning to see Dr. Duque at [facility] for his left knee pain and lower back pain soon Had his follow up labs done last week - to discuss his results plan to move into assisted living in [facility] Medical History HFrEF (heart failure with reduced ejection fraction) Impaired fasting glucose Overweight (BMI 25.0-29.9) Vitamin D deficiency Benign essential hypertension DISH (diffuse idiopathic skeletal hyperostosis) COPD (chronic obstructive pulmonary disease) Pure hypercholesterolemia GERD without esophagitis Epilepsy Keratotic lesion Low back pain Left knee pain Surgical History Hx of cervical discectomy Aortic valve replaced History of carpal tunnel release History of inguinal hernia repair S/P hip arthroscopy Family History Father Cancer Mother Medical history unknown Social History Housing: House Alcohol intake: former Patient Tobacco Use Status: Never used Tobacco e-Cigarette/Vaping Use: Never Used Second Hand Smoke Exposure: Yes service: No Current occupational status: retired Cognitive needs: No Hearing needs: No Vision needs: Yes (reading glasses) Questionnaire PHQ-9 Over the last 2 weeks, how often have you been bothered by any of the following problems? 1. Little interest or pleasure in doing things: not at all 2. Feeling down, depressed, or hopeless: not at all 3. Trouble falling or staying asleep, or sleeping too much: not at all 4. Feeling tired or having little energy: not at all 5. Poor appetite or overeating: not at all 6. Feeling bad about yourself - or that you are a failure or have let yourself or your family down: not at all 7. Trouble concentrating on things, such as reading the newspaper or watching television: not at all 8. Moving or speaking so slowly that other people could have noticed. Or the opposite - being so fidgety or restless that you have been moving around a lot more than usual: not at all 9. Thoughts that you would be better off or of hurting yourself in some way: not at all Total score: 0 Depression Screening Interpretation: Negative Depression Screening Done: Yes 80986 - PHQ-9 Billing: Yes Source: Developed by Drs. Arthur Mittal, Farzana Cervantes, Bladimir Shah and colleagues, with an educational sumaya from [employer]. Thrive Questionnaire Date Thrive assessed: 06/04/23 I am a: Patient What is your living situation today?: I have a steady place to live Within the past 12 months, did the food you bought not last and you didn't have the money to get more?: Never true Within the past 12 months, did you worry whether your food would run out before you got money to buy more?: Never true Do you have trouble paying for medicines?: No Do you have trouble getting transportation to medical appointments?: No Do you have trouble paying your heating and electricity bill?: No Do you have trouble taking care of your child, family member or friend?: No Do you have trouble with day-to-day activities such as bathing, preparing meals, shopping, managing finances, etc.?: No Are you currently unemployed and looking for a job?: No Are you interested in more education?: No Please select the resources that you would like help with: None Currently or been in a relationship where the following occur: no concerns reported AUDIT C Alcohol Use Questionnaire (AUDIT-C) 1. How often do you have a drink containing alcohol?: Never 3. How often do you have six or more drinks on one occasion?: Never Total Score: 0 Score Reviewed/Action Taken: Yes CHARLY-7 AMB Questionnaire CHARLY-7 Date CHARLY - 7 assessed: 06/04/23 Feeling nervous, anxious, or on edge: 0 = Not at all Not being able to stop or control worryin = Not at all Worrying too much about different things: 0 = Not at all Trouble relaxin = Not at all Being so restless that it is hard to sit still: 0 = Not at all Becoming easily annoyed or irritable: 0 = Not at all Feeling afraid as if something awful might happen: 0 = Not at all Total CHARLY-7 score (0-4 normal; 5-9 mild; 10-14 moderate; 15-21 severe): 0 Source: Developed by Drs. Arthur Mittal, Farzana Cervantes, Bladimir Shah and colleagues, with an educational sumaya from [employer]. Review of Systems Const Denies chills, Reports fatigue, Denies fever(s) and Denies headache(s) ENT Denies dysphagia, Denies dizziness, Denies otalgia, Denies headache(s), Reports neck pain (chronic), Denies odynophagia and Denies sore throat Card Denies chest pain, Denies palpitations and Reports dyspnea on exertion Resp Denies chest congestion, Denies cough and Reports dyspnea on exertion GI Denies abdominal pain (but occasional pain over his left inguinal area), Denies constipation, Denies dysphagia, Denies heartburn, Denies diarrhea, Denies nausea, Denies odynophagia and Denies vomiting Denies dysuria, Denies nocturia and Denies urinary frequency Musc Reports back pain (especially over the left lower back - chronic), Reports arthralgias (left knee and over the left hip), Reports neck pain (chronic) and Reports stiffness Skin/Breast Denies rash Neuro Denies dizziness and Denies headache(s) Psych Reports anxiety Endo Reports fatigue and Denies palpitations Physical exam (Primary Care) Vital Signs: Last Vital Signs Pulse 106 H 06/04/23 14:47 BP 116/76 06/04/23 14:47 Pulse Ox 91 L 06/04/23 14:47 Oxygen Delivery Method Room Air 06/04/23 14:47 BMI result Body Mass Index 20.9 Tobacco/Smoking Status: Tobacco use Status Tobacco use date assessed 06/04/23 06/04/23 14:49 Patient Tobacco Use Status Never used Tobacco 06/04/23 14:49 e-Cigarette/Vaping Use Never Used 06/04/23 14:49 PHQ-9: PHQ-9 Score PHQ-9: Total score 0 06/04/23 15:56 Depression Screening Interpretation: Negative Thrive Assessment: Date of Thrive Assessment Date Thrive assessed 06/04/23 06/04/23 14:49 Currently or been in a relationship where the following occur: no concerns reported Const General: no acute distress and alert HENMT Ears: TM's normal bilaterally and EAC's normal Throat: Yes posterior oropharynx normal and Yes tonsils normal (no TP congestion noted) Neck Neck: Yes no lymphadenopathy and Yes tender Resp Auscultation: no rales, no wheezes and diminished lung sounds (slightly) bilateral Cardio Rate: regular rate Rhythm: regular rhythm Heart sounds: no murmurs GI Palpation (GI): Soft to palpation and nontender Auscultation: normal bowel sounds Back/Spine/Pelvis Cervical Spine: Cervical spine tenderness Thoracic/Lumbar Spine: lumbar spinal tenderness Skin Rashes: no rashes Extrem General: Yes no clubbing, cyanosis or edema Right upper extremity: Extremity exam: right hand Details: tenderness Location: of the thumb, of the 2nd digit, of the 3rd digit, of the 4th digit and of the 5th digit and no swelling Left upper extremity: hand Details: tenderness Location: of the thumb, of the 2nd digit, of the 3rd digit, of the 4th digit and of the 5th digit and no swelling Left lower extremity: hip/thigh Details: tenderness Location: of the hip and knee Details: tenderness; no swelling Results Reviewed Results Reviewed: Laboratory Tests 05/26/23 05/26/23 05/26/23 09:37 09:37 09:41 WBC 9.4 Hgb 12.2 L Hct 38.0 L Plt Count 224 Sodium 139 Potassium 3.9 D Creatinine 1.42 H Estimated GFR 47 Fasting Glucose 80 Calcium 9.3 AST 17 ALT 12 B-Natriuretic Peptide 197 H Triglycerides 92 Cholesterol 159 LDL Cholesterol, Calc 96 HDL Cholesterol 45 25-OH Vitamin D Total 83.7 Ur Specific [place] 1.020 Urine Protein Negative Urine Glucose (UA) Negative Urine Blood Negative Assessment and Plan Assessment & Plan (1) HFrEF (heart failure with reduced ejection fraction): Code(s): I50.20 - Unspecified systolic (congestive) heart failure Plan: Patient currently appears compensated - LVEF in February 2023 was mostly unchanged from a couple of years ago (echocardiogram done back in July 2021 revealed EF of 35 to 40% with moderate global hypokinesia and moderate diastolic dysfunction) Was admitted to [facility] back in February 2023 for new onset atrial flutter and 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 and was found to have a BNP of 5046 - symptoms responded to IV diuresis Currently remains on low dose Furosemide at 20 mg QD - could not tolerate higher doses due to ZARA Continue Carvedilol 12.5 mg BID Reinforced fluid restriction but cautioned as well about staying adequately hydrated due to his CKD - reminded that he has to find some balance to his fluid intake (2) Atrial flutter: Code(s): I48.92 - Unspecified atrial flutter Qualifiers: Atrial flutter type: unspecified Qualified Code(s): I48.92 - Unspecified atrial flutter Plan: Patient is currently in sinus rhythm Continue Eliquis 2.5 mg BID for thromboembolism prophylaxis (3) 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 Duque (4) DISH (diffuse idiopathic skeletal hyperostosis): Code(s): M48.10 - Ankylosing hyperostosis [[place]], site unspecified Plan: Continue Tramadol 50 mg TID PRN for pain Follow-up with Neurosurgery as scheduled - now sees Dr. Torres at [facility] Relates that he was sent for an open MRI of his lumbar spine but he could not even tolerate the wider confines of the open MRI States that he will have to be knocked out completely for him to be able to complete the procedure - advised that he has to be able to follow some instructions while he is in the machine and getting his scan done so getting knocked out for the procedure is not an option at this time Repeat lumbar spine x-rays done a few months ago in January 2023 revealed advanced multilevel degenerative changes in the lumbar spine, with an L3 anterior compression that may have possibly progressed from last year (2021) (5) Osteoarthritis of left hip: Code(s): M16.12 - Unilateral primary osteoarthritis, left hip Qualifiers: Osteoarthritis type: primary Qualified Code(s): M16.12 - Unilateral primary osteoarthritis, left hip Plan: Left hip x-rays done at [facility] in January 2023 revealed (+) mild degenerative joint space loss Will consider referring him to orthopedics for further management if his hip pain gets worse (6) Benign essential hypertension: Code(s): I10 - Essential (primary) hypertension Plan: Reinforced low sodium diet - goal is systolic BP of at least 140 to 150 mm or less Continue Carvedilol 12.5 mg BID and Furosemide 20 mg QD Valsartan 40 mg was discontinued sometime last year due to ZARA and patient could not tolerate Rx (severe dizziness and weakness) when cardiology tried to start him back on this a few weeks ago (7) Pure hypercholesterolemia: Code(s): E78.00 - Pure hypercholesterolemia, unspecified Plan: Results of his labs done last week reviewed and discussed with patient Reinforced low cholesterol diet Continue Atorvastatin 40 mg once a day; was also previously on Ezetimibe 10 mg QD but patient is unclear as to when he stopped taking this Will recheck his labs and fasting lipids in 3 months for follow up (8) COPD (chronic obstructive pulmonary disease): Code(s): J44.9 - Chronic obstructive pulmonary disease, unspecified Qualifiers: COPD type: unspecified COPD Qualified Code(s): J44.9 - Chronic obstructive pulmonary disease, unspecified Plan: Reportedly had acute hypoxic respiratory failure last year when he presented to the ER at [facility] with symptoms of progressive dyspnea and heart failure Was admitted to [facility] in February 2023 for new onset atrial flutter and again last month for CHF exacerbation - states that he has been stable Chest x-rays last done in January 2023 revealed (+) right pleural effusion Continue Advair Diskus 250-50 mcg 1 inhalation BID, ProAir HFA 2 puffs 4 times a day as needed and Anoro Ellipta Follow-up with pulmonary (Dr. Echeverria) at [facility] as scheduled (9) Impaired fasting glucose: Code(s): R73.01 - Impaired fasting glucose Plan: In-office HgbA1c was previously at 6.0% and was normal at 5.7% when last checked in November 2021 - will continue to monitor closely Reinforced low calorie diet / exercise as tolerated (10) Epilepsy: Code(s): G40.909 - Epilepsy, unspecified, not intractable, without status epilepticus Qualifiers: Epilepsy type: unspecified Intractability: not intractable Status epilepticus: without status epilepticus Qualified Code(s): G40.909 - Epilepsy, unspecified, not intractable, without status epilepticus Plan: No seizures lately Continue Levetiracetam 500 mg BID Follow-up with Neurology as scheduled (11) Dementia: Code(s): F03.90 - Unspecified dementia, unspecified severity, without behavioral disturbance, psychotic disturbance, mood disturbance, and anxiety Qualifiers: Dementia type: unspecified type Dementia behavioral disturbance: without behavioral disturbance Qualified Code(s): F03.90 - Unspecified dementia without behavioral disturbance Plan: Continue Donepezil 10 mg QHS Follow up with neurology as scheduled (12) GERD without esophagitis: Code(s): K21.9 - Gastro-esophageal reflux disease without esophagitis Plan: Dietary restrictions reinforced Continue Omeprazole 20 mg QD (13) Vitamin D deficiency: Code(s): E55.9 - Vitamin D deficiency, unspecified Plan: He is advised that his Vitamin D level is now high on his recent labs done last week and to start cutting back on his Vitamin D3 2000 units to just 1 tablet every other day Will recheck his Vitamin D level in 3 months for follow up (14) Basal cell carcinoma: Code(s): C44.91 - Basal cell carcinoma of skin, unspecified Qualifiers: Basal cell carcinoma location: unspecified site Qualified Code(s): C44.91 - Basal cell carcinoma of skin, unspecified Plan: S/P excision of BCC lesions from his back by Dr. Zamorano a few months ago Follow-up with dermatology as scheduled - was started on Imiquimod cream but patient developed a rash and he stopped using the cream a few months ago Plan Follow up in 3 months Orders: Orders Complete Blood Count Auto Diff 3 Months I10 - Essential (primary) hypertension, N28.9 - Disorder of kidney and ureter, unspecified Lipid Panel 3 Months E78.00 - Pure hypercholesterolemia, unspecified, N28.9 - Disorder of kidney and ureter, unspecified TSH reflex Free T4 3 Months E78.00 - Pure hypercholesterolemia, unspecified, N28.9 - Disorder of kidney and ureter, unspecified UA CC w/rflx Micro + Cult 3 Months N28.9 - Disorder of kidney and ureter, unspecified, R30.0 - Dysuria Hemoglobin A1c 24 R73.01 - Impaired fasting glucose Comprehensive [place]. Panel Fast 3 Months E78.00 - Pure hypercholesterolemia, unspecified, N28.9 - Disorder of kidney and ureter, unspecified B Type Natriuretic Peptide 3 Months I50.9 - Heart failure, unspecified, N28.9 - Disorder of kidney and ureter, unspecified Vitamin D 25-OH Total 3 Months E55.9 - Vitamin D deficiency, unspecified, N28.9 - Disorder of kidney and ureter, unspecified Levetiracetam Keppra 09/04/23 G40.909 - Epilepsy, unspecified, not intractable, without status epilepticus Coding Level of Care Code Est Pt Level 4 (72654) Diagnoses HFrEF (heart failure with reduced ejection fraction) I50.20 Atrial flutter, unspecified type I48.92 Atrial flutter type: unspecified 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 M47.12 DISH (diffuse idiopathic skeletal hyperostosis) M48.10 Primary osteoarthritis of left hip M16.12 Osteoarthritis type: primary Benign essential hypertension I10 Pure hypercholesterolemia E78.00 Chronic obstructive pulmonary disease, unspecified COPD type J44.9 COPD type: unspecified COPD Impaired fasting glucose R73.01 Nonintractable epilepsy without status epilepticus, unspecified epilepsy type G40.909 Epilepsy type: unspecified Intractability: not intractable Status epilepticus: without status epilepticus Dementia without behavioral disturbance, unspecified dementia type F03.90 Dementia type: unspecified type Dementia behavioral disturbance: without behavioral disturbance GERD without esophagitis K21.9 Vitamin D deficiency E55.9 Basal cell carcinoma (BCC), unspecified site C44.91 Basal cell carcinoma location: unspecified site
== END 2023-06-04 16:26 | disposition home or self-care (01) ==
PROVIDERS: PCP Internal Medicine; Visit Provider Internal Medicine
DX: I11.0 Hypertensive heart disease with heart failure (principal); I50.20 Unspecified systolic (congestive) heart failure; I48.92 Unspecified atrial flutter; J44.9 Chronic obstructive pulmonary disease, unspecified; G40.909 Epilepsy, unspecified, not intractable, without status epilepticus; F03.90 Unspecified dementia, unspecified severity, without behavioral disturbance, psychotic disturbance, mood disturbance, and anxiety
CPT/HCPCS: 99214

== ENCOUNTER 2023-08-20 10:09 | Outpatient (REF) | payer MEDICARE, OTHER, SELFPAY ==
[2023-08-20 13:13] LABS: MANUAL DIFF FLAG NO
[2023-08-20 13:28] LABS: Appearance Urine Clear; Color Urine Yellow; Glucose Urine UA Negative (Negative); Leukocyte Esterase Urine Negative (Negative); Nitrite Urine Negative (Negative); PH 5.5 (5.0-9.0); Urine Blood Negative (Negative); Urine Ketones Negative (Negative); Urine Protein Negative (Neg-Trace)
[2023-08-20 13:34] LABS: Hematocrit 38.6 % (42.0-52.0); Hemoglobin 12.3 g/dl (14.0-18.0); Mean Corpuscular HGB Conc 31.9 g/dl (31.0-36.0); Mean Corpuscular Hemoglobin 29.3 pg (27.0-33.0); Mean Corpuscular Volume 91.9 fL (80.0-98.0); Mean Platelet Volume 11.1 fL (9.4-12.4); Platelet Count 191 X10*3/uL (160-400); Red Cell Distribution Width 14.8 % (11.0-16.0); White Blood Count 7.6 X10*3/uL (4.8-10.8)
[2023-08-20 13:35] LABS: Basophils Absolute Auto 0.1 X10*3/uL (0.0-0.2); Basophils Percent Auto 0.7 % (0-2); Eosinophils Absolute Auto 0.3 X10*3/uL (0.0-0.4); Eosinophils Percent Auto 3.5 % (0-4); Imm Gran Abs Auto 0.02 X10*3/uL (0.00-0.03); Imm Gran Pct Auto 0.3 % (0.0-0.4); Lymphocytes Absolute Auto 1.6 X10*3/uL (1.2-4.9); Lymphocytes Percent Auto 21.3 % (20-40); Monocytes Absolute Auto 0.8 X10*3/uL (0.1-1.2); Monocytes Percent Auto 10.8 % (2-11); Neutrophils Absolute Auto 4.8 x10*3/uL (2.0-8.3); Neutrophils Percent Auto 63.4 % (45-73)
[2023-08-20 13:38] LABS: Estimated Average Glucose 128 mg/dL; Hemoglobin A1c % 6.1 % (<6.0)
[2023-08-20 14:33] LABS: B Type Natriuretic Peptide 190 pg/mL (<100)
[2023-08-20 17:09] LABS: Alanine Aminotransferase 21 U/L (0-40); Albumin Level 3.7 g/dL (3.5-5.0); Alkaline Phosphatase 143 U/L (39-117); Anion Gap 12 (12-20); Aspartate Amino Transferase 23 U/L (5-37); Bilirubin Total 0.5 mg/dL (0.0-1.0); Blood Urea Nitrogen 30 mg/dL (9-16); Calcium 9.7 mg/dL (8.4-10.2); Carbon Dioxide 29 mmol/L (22-29); Chloride 106 mmol/L (96-108); Cholesterol 171 mg/dL (<200); Estimated Glomerular Filt Rate 44; Glucose Fasting 97 mg/dL (60-99); HDL Cholesterol 51 mg/dL (>40); LDL Cholesterol Calculated 103 mg/dL (<100); Potassium 4.8 mmol/L (3.3-5.1); Sodium 142 mmol/L (135-145); Total Protein 6.9 g/dL (6.5-8.0); Triglycerides 87 mg/dL (<150)
[2023-08-20 17:10] LABS: Vitamin D 25-OH Total 78.4 ng/mL (>30)
[2023-08-24 19:33] LABS: Levetiracetam Keppra 54.4 mcg/mL (6.0-46.0)
== END 2023-08-20 10:10 | disposition home or self-care (01) ==
LOC: HO.HMGCLDS 10:09
PROVIDERS: PCP Internal Medicine; Visit Provider Internal Medicine
DX: I11.0 Hypertensive heart disease with heart failure (principal); I50.9 Heart failure, unspecified; G40.909 Epilepsy, unspecified, not intractable, without status epilepticus; R73.01 Impaired fasting glucose; E55.9 Vitamin D deficiency, unspecified; N28.9 Disorder of kidney and ureter, unspecified; E78.00 Pure hypercholesterolemia, unspecified; R30.0 Dysuria
CPT/HCPCS: 36415; 80053; 80061; 80177; 81003; 82306; 83036; 83880; 84443; 85025

== ENCOUNTER 2023-10-24 09:41 | Outpatient (AMB) | payer MEDICARE, OTHER, SELFPAY ==
[2023-10-24 09:50] VITALS: BP 112/68; PULSE 84; O2SAT 99; BMI 21.7
--- NOTE | 2023-10-24 09:50 | A.OFFPC_ITS ---
Vital Signs 10/24/23 09:50 Height 5 ft 10 in Weight 151 lb 6 oz BMI 21.7 BP 112/68 Blood Pressure Location Lt brachial Position Sitting Pulse 84 Pulse Source Pulse Oximeter Pulse Oximetry (%) 99 Oxygen Delivery Method Room Air Intake Visit Reasons: 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: No Accompanied by: Self / Same As Patient Allergies morphine Allergy (Unknown, Verified 10/24/23 10:53) nausea and vomiting oxycodone Allergy (Unknown, Verified 10/24/23 10:53) nausea and vomiting Medication List - Last Reconciled 10/24/23 by Braxton Parikh MD albuterol sulfate 90 mcg/actuation 2 puffs PO TID-QID PRN amoxicillin 2,000 mg (4 x 500 mg) PO ONCE 1 day apixaban (Eliquis) 2.5 mg PO BID carvedilol 12.5 mg PO BID cholecalciferol (vitamin D3) 25 mcg PO DAILY donepezil 10 mg PO BEDTIME 90 days fluticasone propion-salmeterol 250-50 mcg/dose (Advair Diskus) 1 inh inhalation BID furosemide 20 mg PO DAILY 90 days hydroxyzine pamoate (Vistaril) 25 mg PO BEDTIME PRN levetiracetam 500 mg PO BID Lipitor (atorvastatin) 40 mg PO DAILY 90 days NS lorazepam Take 1 tablet 30 minutes before procedure as needed for anxiety. May repeat x 1 dose after 10 to 15 minutes if needed. 1 day nirmatrelvir-ritonavir 300 mg (150 mg x 2)-100 mg (Paxlovid) 3 ea PO PER PKG DIR 5 days omeprazole 20 mg PO BID 90 days permethrin 5% 1 appl topical Q14D 2 doses tramadol 50 mg PO Q8H PRN 30 days Tobacco use date assessed: 10/24/23 Fall risk assessment: No Falls in past year Last assessed Fall Risk: 10/24/23 Dental Screening Dental Screen Date: 10/24/23 Did you have a dental visit in the last 12 months?: Yes Did you have a dental problem in the last 6 months where you did not have access to dental care?: No Was dental information given to patient?: Patient has dentist [facility] HPI Details Patient comes in today for his [facility] follow up visit He was admitted to [facility] briefly for a few days earlier this week when he was brought to the ER there from the assisted living facility where he is currently residing with his for increasing SOB He reportedly required initiation of BiPAP when he was admitted but he was able to wean off the BiPAP quickly with improvement of his symptoms with medical management He was eventually discharged back to the [facility] in [place] with VNA services Patient states that aside from increased anxiety, he feels okay and his michelle athing has been stable/controlled since his discharge from the hospital a few days ago He will be seeing Dr. Echeverria at [facility] in a couple of weeks on 11/04/23 for pulmonary consultation/follow up His states that patient has not been sleeping well at night lately due to his increasing anxiety He denies any headaches or dizziness; denies any fever Denies any chest pains or increased SOB No nausea/vomiting, no abdominal pain No change in bowel habits noted He had some follow up labs done back in July 2023 for us and for nephrology [facility] Medical History HFrEF (heart failure with reduced ejection fraction) Impaired fasting glucose Overweight (BMI 25.0-29.9) Vitamin D deficiency Benign essential hypertension DISH (diffuse idiopathic skeletal hyperostosis) COPD (chronic obstructive pulmonary disease) Pure hypercholesterolemia GERD without esophagitis Epilepsy Keratotic lesion Low back pain Left knee pain Surgical History Hx of cervical discectomy Aortic valve replaced History of carpal tunnel release History of inguinal hernia repair S/P hip arthroscopy Family History Father Cancer Mother Medical history unknown Social History Housing: House Alcohol intake: former Patient Tobacco Use Status: Never used Tobacco e-Cigarette/Vaping Use: Never Used Second Hand Smoke Exposure: Yes service: No Current occupational status: retired Cognitive needs: No Hearing needs: No Vision needs: Yes (reading glasses) Questionnaire PHQ-9 Over the last 2 weeks, how often have you been bothered by any of the following problems? 1. Little interest or pleasure in doing things: not at all 2. Feeling down, depressed, or hopeless: not at all 3. Trouble falling or staying asleep, or sleeping too much: not at all 4. Feeling tired or having little energy: not at all 5. Poor appetite or overeating: not at all 6. Feeling bad about yourself - or that you are a failure or have let yourself or your family down: not at all 7. Trouble concentrating on things, such as reading the newspaper or watching television: not at all 8. Moving or speaking so slowly that other people could have noticed. Or the opposite - being so fidgety or restless that you have been moving around a lot more than usual: not at all 9. Thoughts that you would be better off or of hurting yourself in some way: not at all Total score: 0 Depression Screening Interpretation: Negative Depression Screening Done: Yes 73153 - PHQ-9 Billing: Yes Source: Developed by Drs. Arthur Mittal, Farzana Cervantes, Bladimir Shah and colleagues, with an educational sumaya from [employer]. Thrive Questionnaire Date Thrive assessed: 10/24/23 I am a: Patient What is your living situation today?: I have a steady place to live Within the past 12 months, did the food you bought not last and you didn't have the money to get more?: Never true Within the past 12 months, did you worry whether your food would run out before you got money to buy more?: Never true Do you have trouble paying for medicines?: No Do you have trouble getting transportation to medical appointments?: No Do you have trouble paying your heating and electricity bill?: No Do you have trouble taking care of your child, family member or friend?: No Do you have trouble with day-to-day activities such as bathing, preparing meals, shopping, managing finances, etc.?: No Are you currently unemployed and looking for a job?: No Are you interested in more education?: No Please select the resources that you would like help with: None Currently or been in a relationship where the following occur: no concerns reported THRIVE Score: 0 AUDIT C Alcohol Use Questionnaire (AUDIT-C) 1. How often do you have a drink containing alcohol?: Never 3. How often do you have six or more drinks on one occasion?: Never Total Score: 0 Score Reviewed/Action Taken: Yes CHARLY-7 AMB Questionnaire CHARLY-7 Date CHARLY - 7 assessed: 10/24/23 Feeling nervous, anxious, or on edge: 0 = Not at all Not being able to stop or control worryin = Not at all Worrying too much about different things: 0 = Not at all Trouble relaxin = Not at all Being so restless that it is hard to sit still: 0 = Not at all Becoming easily annoyed or irritable: 0 = Not at all Feeling afraid as if something awful might happen: 0 = Not at all Total CHARLY-7 score (0-4 normal; 5-9 mild; 10-14 moderate; 15-21 severe): 0 Source: Developed by Drs. Arthur Mittal, Farzana Cervantes, Bladimir Shah and colleagues, with an educational sumaya from [employer]. Review of Systems Const Denies chills, Reports difficulty sleeping (per his , patient has hardly been sleeping through the night lately), Reports fatigue, Denies fever(s) and Denies headache(s) ENT Denies dysphagia, Denies dizziness, Denies otalgia, Denies headache(s), Reports neck pain (chronic), Denies odynophagia and Denies sore throat Card Denies chest pain, Denies palpitations and Reports dyspnea on exertion (mild) Resp Denies chest congestion, Denies cough and Reports dyspnea on exertion (mild) GI Denies abdominal pain ((+) occasional pain over his left inguinal area), Denies constipation, Denies dysphagia, Denies heartburn, Denies diarrhea, Denies nausea, Denies odynophagia and Denies vomiting Denies dysuria, Denies nocturia and Denies urinary frequency Musc Reports back pain (especially over the left lower back - chronic), Reports a rthralgias (left knee and over the left hip), Reports neck pain (chronic) and Reports stiffness Skin/Breast Denies rash Neuro Denies dizziness and Denies headache(s) Psych Reports anxiety (increasing) Endo Reports fatigue and Denies palpitations Physical exam (Primary Care) Vital Signs: Last Vital Signs Pulse 84 10/24/23 09:50 BP 112/68 10/24/23 09:50 Pulse Ox 99 03/01/24 09:50 Oxygen Delivery Method Room Air 03/01/24 09:50 BMI result Body Mass Index 21.7 Tobacco/Smoking Status: Tobacco use Status Tobacco use date assessed 10/24/23 10/24/23 09:52 Patient Tobacco Use Status Never used Tobacco 10/24/23 09:52 e-Cigarette/Vaping Use Never Used 10/24/23 09:52 PHQ-9: PHQ-9 Score PHQ-9: Total score 0 10/24/23 10:54 Depression Screening Interpretation: Negative Thrive Assessment: Date of Thrive Assessment Date Thrive assessed 10/24/23 10/24/23 09:52 Currently or been in a relationship where the following occur: no concerns reported Advance Care Planning discussion: On file, no changes Date of discussion: 10/24/23 Who was present: patient, PCP Forms completed: MOLST and Comfort care/DNR Time spent: 1-15 minutes, on File Const General: no acute distress and alert HENMT Ears: TM's normal bilaterally and EAC's normal Throat: Yes posterior oropharynx normal and Yes tonsils normal (no TP congestion noted) Neck Neck: Yes no lymphadenopathy and Yes tender Resp Auscultation: no rales, no wheezes and diminished lung sounds (slightly) bilateral Cardio Rate: regular rate Rhythm: regular rhythm Heart sounds: no murmurs GI Palpation (GI): Soft to palpation and nontender Auscultation: normal bowel sounds Back/Spine/Pelvis Cervical Spine: Cervical spine tenderness Thoracic/Lumbar Spine: lumbar spinal tenderness Skin Rashes: no rashes Extrem General: Yes no clubbing, cyanosis or edema Right upper extremity: Extremity exam: right hand Details: tenderness Location: of the thumb, of the 2nd digit, of the 3rd digit, of the 4th digit and of the 5th digit and no swelling Left upper extremity: hand Details: tenderness Location: of the thumb, of the 2nd digit, of the 3rd digit, of the 4th digit and of the 5th digit and no swelling Left lower extremity: hip/thigh Details: tenderness Location: of the hip and knee Details: tenderness; no swelling Results Reviewed Results Reviewed: Laboratory Tests 08/20/23 08/20/23 08/20/23 10:20 10:27 10:27 WBC 7.6 Hgb 12.3 L Hct 38.6 L Plt Count 191 Sodium 142 Potassium 4.8 D Creatinine 1.50 H Estimated GFR 44 Fasting Glucose 97 Hemoglobin A1c % 6.1 H Calcium 9.7 AST 23 ALT B-Natriuretic Peptide 190 H Triglycerides 87 Cholesterol 171 LDL Cholesterol, Calc 103 H HDL Cholesterol 51 25-OH Vitamin D Total 78.4 TSH 1.60 Ur Specific [place] Urine Protein Urine Glucose (UA) Urine Blood Urine Nitrite Ur Leukocyte Esterase Levetiracetam 08/20/23 08/20/23 08/20/23 10:27 10:27 10:30 WBC Hgb Hct Plt Count Sodium Potassium Creatinine Estimated GFR Fasting Glucose Hemoglobin A1c % Calcium AST ALT 21 B-Natriuretic Peptide Triglycerides Cholesterol LDL Cholesterol, Calc HDL Cholesterol 25-OH Vitamin D Total TSH Ur Specific [place] 1.020 Urine Protein Negative Urine Glucose (UA) Urine Blood Urine Nitrite Ur Leukocyte Esterase Levetiracetam 54.4 H 08/20/23 10:30 WBC Hgb Hct Plt Count Sodium Potassium Creatinine Estimated GFR Fasting Glucose Hemoglobin A1c % Calcium AST ALT B-Natriuretic Peptide Triglycerides Cholesterol LDL Cholesterol, Calc HDL Cholesterol 25-OH Vitamin D Total TSH Ur Specific [place] Urine Protein Urine Glucose (UA) Negative Urine Blood Negative Urine Nitrite Negative Ur Leukocyte Esterase Negative Levetiracetam Assessment and Plan Assessment & Plan (1) COPD exacerbation: Code(s): J44.1 - Chronic obstructive pulmonary disease with (acute) exacerbation Plan: Patient appears to have had a bout of COPD exacerbation when he was brought to the ER earlier this week States that his breathing has improved a lot with Tx and he currently has no acute issues - does not require oxygen He reportedly tested negative for influenza, RSV and COVID while he was at [facility] a few days ago Continue Advair Diskus 250-50 mcg 1 inhalation BID, ProAir HFA 2 puffs 4 times a day as needed and Anoro Ellipta Follow-up with pulmonary (Dr. Echeverria) at [facility] as scheduled (2) HFrEF (heart failure with reduced ejection fraction): Code(s): I50.20 - Unspecified systolic (congestive) heart failure Plan: Patient currently appears compensated - LVEF in February 2023 was mostly unchanged from a couple of years ago (echocardiogram done back in July 2021 revealed EF of 35 to 40% with moderate global hypokinesia and moderate diastolic dysfunction) Was admitted to [facility] back in February 2023 for new onset atrial flutter and po ssible tachycardia-induced cardiomyopathy and was found to have a BNP of 5046 - symptoms responded to IV diuresis Currently remains on low dose Furosemide at 20 mg QD - could not tolerate higher doses due to ZARA Continue Carvedilol 12.5 mg BID Reinforced fluid restriction but cautioned as well about staying adequately hydrated due to his CKD (3) Atrial flutter: Code(s): I48.92 - Unspecified atrial flutter Qualifiers: Atrial flutter type: unspecified Qualified Code(s): I48.92 - Unspecified atrial flutter Plan: Patient is currently in sinus rhythm Continue Eliquis 2.5 mg BID for thromboembolism prophylaxis (4) Benign essential hypertension: Code(s): I10 - Essential (primary) hypertension Plan: Reinforced low sodium diet - goal is systolic BP of at least 140 to 150 mm or less Continue Carvedilol 12.5 mg BID and Furosemide 20 mg QD Valsartan 40 mg was discontinued sometime last year due to ZARA and patient could not tolerate Rx (severe dizziness and weakness) when cardiology tried to start him back on this a few weeks ago (5) Pure hypercholesterolemia: Code(s): E78.00 - Pure hypercholesterolemia, unspecified Plan: Results of his labs done back in July 2023 reviewed and discussed with patient Reinforced low cholesterol diet Continue Atorvastatin 40 mg QD; was also previously on Ezetimibe 10 mg QD but patient is unclear as to when he stopped taking this Will recheck his labs and fasting lipids in 3 months for follow up (6) Impaired fasting glucose: Code(s): R73.01 - Impaired fasting glucose Plan: HgbA1c was at 6.1% when last checked in July 2023; in-office HgbA1c was previously at 6.0% and at 5.7% when previously checked - will continue to monitor this closely Reinforced low calorie diet / exercise as tolerated (7) 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 Duque (8) DISH (diffuse idiopathic skeletal hyperostosis): Code(s): M48.10 - Ankylosing hyperostosis [[place]], site unspecified Plan: Continue Tramadol 50 mg TID PRN for pain Follow-up with Neurosurgery as scheduled - now sees Dr. Torres at [facility] Relates that he was sent for an open MRI of his lumbar spine but he could not even tolerate the wider confines of the open MRI States that he will have to be knocked out completely for him to be able to complete the procedure - advised that he has to be able to follow some instructions while he is in the machine and getting his scan done so getting knocked out for the procedure is not an option at this time Repeat lumbar spine x-rays done in January 2023 revealed advanced multilevel degenerative changes in the lumbar spine, with an L3 anterior compression that may have possibly progressed from last year (2021) (9) Osteoarthritis of left hip: Code(s): M16.12 - Unilateral primary osteoarthritis, left hip Qualifiers: Osteoarthritis type: primary Qualified Code(s): M16.12 - Unilateral primary osteoarthritis, left hip Plan: Left hip x-rays done at [facility] in January 2023 revealed (+) mild degenerative joint space loss Will consider referring him to orthopedics for further management if his hip pain gets worse (10) Epilepsy: Code(s): G40.909 - Epilepsy, unspecified, not intractable, without status epilepticus Qualifiers: Epilepsy type: unspecified Intractability: not intractable Status epilepticus: without status epilepticus Qualified Code(s): G40.909 - Epilepsy, unspecified, not intractable, without status epilepticus Plan: No seizures lately Continue Levetiracetam 500 mg BID Follow-up with Neurology as scheduled (11) Dementia: Code(s): F03.90 - Unspecified dementia, unspecified severity, without behavioral disturbance, psychotic disturbance, mood disturbance, and anxiety Qualifiers: Dementia type: unspecified type Dementia behavioral disturbance: without behavioral disturbance Qualified Code(s): F03.90 - Unspecified dementia without behavioral disturbance Plan: Continue Donepezil 10 mg QHS Follow up with neurology as scheduled (12) GERD without esophagitis: Code(s): K21.9 - Gastro-esophageal reflux disease without esophagitis Plan: Dietary restrictions reinforced Continue Omeprazole 20 mg QD (13) Vitamin D deficiency: Code(s): E55.9 - Vitamin D deficiency, unspecified Plan: Corrected - continue Vitamin D3 2000 units 1 tablet every other day Will recheck his Vitamin D level in a few months for follow up (14) Basal cell carcinoma: Code(s): C44.91 - Basal cell carcinoma of skin, unspecified Qualifiers: Basal cell carcinoma location: unspecified site Qualified Code(s): C44.91 - Basal cell carcinoma of skin, unspecified Plan: S/P excision of BCC lesions from his back by Dr. Zamorano a few months ago Follow-up with dermatology as scheduled - was started on Imiquimod cream but patient developed a rash and he stopped using the cream a few months ago (15) Anxiety: Code(s): F41.9 - Anxiety disorder, unspecified Plan: Will start patient on Doxepin 10 mg Q HS PRN and Sertraline 50 mg Q AM for his increasing anxiety Plan Follow up as scheduled in December 2023 Orders: Orders Complete Blood Count Auto Diff 12/28/23 D64.9 - Anemia, unspecified Comprehensive [place]. Panel Fast 12/28/23 E78.00 - Pure hypercholesterolemia, unspecified Hemoglobin A1c 12/28/23 R73.01 - Impaired fasting glucose Lipid Panel 12/28/23 E78.00 - Pure hypercholesterolemia, unspecified TSH reflex Free T4 12/28/23 E78.00 - Pure hypercholesterolemia, unspecified UA CC w/rflx Micro + Cult 12/28/23 R30.0 - Dysuria Vitamin B12 and Folate 12/28/23 E53.8 - Deficiency of other specified B group vitamins Levetiracetam Keppra 12/28/23 G40.909 - Epilepsy, unspecified, not intractable, without status epilepticus B Type Natriuretic Peptide 12/28/23 I50.9 - Heart failure, unspecified Vitamin D 25-OH Total 12/28/23 E55.9 - Vitamin D deficiency, unspecified Medications: New doxepin 10 mg PO BEDTIME PRN 30 caps 3RF anxiety / sleep 30 days sertraline Take in AM 50 mg PO DAILY 30 tabs 3RF 30 days Discontinued nirmatrelvir-ritonavir 300 mg (150 mg x 2)-100 mg (Paxlovid) Discontinued Reason: Patient Completed Course 3 ea PO PER PKG DIR 5 days 30 ea 0RF Coding Level of Care Code Est Pt Level 4 (91054) Diagnoses COPD exacerbation J44.1 HFrEF (heart failure with reduced ejection fraction) I50.20 Atrial flutter, unspecified type I48.92 Atrial flutter type: unspecified Benign essential hypertension I10 Pure hypercholesterolemia E78.00 Impaired fasting glucose R73.01 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 M47.12 DISH (diffuse idiopathic skeletal hyperostosis) M48.10 Primary osteoarthritis of left hip M16.12 Osteoarthritis type: primary Nonintractable epilepsy without status epilepticus, unspecified epilepsy type G40.909 Epilepsy type: unspecified Intractability: not intractable Status epilepticus: without status epilepticus Dementia without behavioral disturbance, unspecified dementia type F03.90 Dementia type: unspecified type Dementia behavioral disturbance: without behavioral disturbance GERD without esophagitis K21.9 Vitamin D deficiency E55.9 Basal cell carcinoma (BCC), unspecified site C44.91 Basal cell carcinoma location: unspecified site Anxiety F41.9 Additional Codes Vital Signs *Quality* - Advance Care Planning discussion: On file, no changes ([id number]) Vital Signs *Quality* - Time spent: 1-15 minutes, on File ([id number])
== END 2023-10-24 11:40 | disposition home or self-care (01) ==
PROVIDERS: PCP Internal Medicine; Visit Provider Internal Medicine
DX: J44.9 Chronic obstructive pulmonary disease, unspecified (principal); I11.0 Hypertensive heart disease with heart failure; I50.20 Unspecified systolic (congestive) heart failure; I48.92 Unspecified atrial flutter
CPT/HCPCS: 1123F; 99214

== ENCOUNTER → 2023-10-30 23:59 | Outpatient (BNV) | payer MEDICARE, OTHER, SELFPAY | PROVIDERS: PCP Internal Medicine; Visit Provider Internal Medicine | DX: I13.0 Hypertensive heart and chronic kidney disease with heart failure and stage 1 through stage 4 chronic kidney disease, or unspecified chronic kidney disease (principal); N18.2 Chronic kidney disease, stage 2 (mild); J44.1 Chronic obstructive pulmonary disease with (acute) exacerbation; I50.23 Acute on chronic systolic (congestive) heart failure | CPT/HCPCS: G0180 ==

== ENCOUNTER 2023-12-18 12:15 | Outpatient (REF) | payer MEDICARE, OTHER, SELFPAY ==
[2023-12-18 14:28] LABS: Anion Gap 10 (12-20); Blood Urea Nitrogen 31 mg/dL (9-16); Calcium 8.7 mg/dL (8.4-10.2); Carbon Dioxide 32 mmol/L (22-29); Chloride 101 mmol/L (96-108); Estimated Glomerular Filt Rate 40; Glucose Random 168 mg/dL (60-115); Potassium 4.4 mmol/L (3.3-5.1); Sodium 139 mmol/L (135-145)
== END 2023-12-18 12:16 | disposition home or self-care (01) ==
LOC: HO.HMGCLNP 12:15
PROVIDERS: PCP Internal Medicine; Visit Provider Internal Medicine
DX: I50.9 Heart failure, unspecified (principal); N18.9 Chronic kidney disease, unspecified
CPT/HCPCS: 80048

== ENCOUNTER 2024-01-05 17:30 | Outpatient (AMB) | payer MEDICARE, OTHER, SELFPAY ==
--- NOTE | 2024-01-05 17:30 | MHC.PC.OV ---
Intake Visit Reasons: 3M. F/U-COPD Allergies morphine Allergy (Unknown, Verified 01/06/24 02:17) nausea and vomiting oxycodone Allergy (Unknown, Verified 01/06/24 02:17) nausea and vomiting Medication List - Last Reconciled 01/06/24 by Braxton Parikh MD albuterol sulfate 90 mcg/actuation 2 puffs PO TID-QID PRN amoxicillin 2,000 mg (4 x 500 mg) PO ONCE 1 day apixaban (Eliquis) 2.5 mg PO BID carvedilol 25 mg PO BID cholecalciferol (vitamin D3) 25 mcg PO DAILY donepezil 10 mg PO BEDTIME 90 days fluticasone propion-salmeterol 250-50 mcg/dose (Advair Diskus) 1 inh inhalation BID furosemide 20 mg PO DAILY 90 days hydroxyzine pamoate (Vistaril) 25 mg PO BEDTIME PRN levetiracetam 500 mg PO BID Lipitor (atorvastatin) 40 mg PO DAILY 90 days NS lorazepam Take 1 tablet 30 minutes before procedure as needed for anxiety. May repeat x 1 dose after 10 to 15 minutes if needed. 1 day omeprazole 20 mg PO BID 90 days permethrin 5% 1 appl topical Q14D 2 doses prednisone 40 mg PO DAILY tramadol 50 mg PO Q8H PRN 30 days Tobacco use date assessed: 10/24/23 Fall risk assessment: No Falls in past year Last assessed Fall Risk: 01/05/24 Dental Screening Dental Screen Date: 10/24/23 HPI 3M. F/U-COPD HPI Details Patient's follow-up visit / consultation today is done over the phone - this is a Telehealth visit Patient's current medications have been reviewed and verified with patient and / or caregiver / proxy and have been updated accordingly in the medication list Patient states that he currently feels okay and has not had any significant issues since his discharge home almost month ago on 12/11/2023 He was admitted to [facility] 2 separate times in October and November of 2023 for CHF exacerbation and COPD exacerbation He denies any headaches or dizziness Denies any chest pains, no increased shortness of breath - states that his oxygen saturation has been well into the 90s and he has been using his oxygen most of the time as instructed, especially with activity /walking No nausea / vomiting, no abdominal pain No change in bowel habits noted He reportedly had some routine follow-up labs done a couple of weeks ago at [facility] Medical History (Updated 01/06/24 @ 03:04 by Braxton Parikh MD) Chronic kidney disease, stage III (moderate) HFrEF (heart failure with reduced ejection fraction) Impaired fasting glucose Overweight (BMI 25.0-29.9) Vitamin D deficiency Benign essential hypertension DISH (diffuse idiopathic skeletal hyperostosis) COPD (chronic obstructive pulmonary disease) Pure hypercholesterolemia GERD without esophagitis Epilepsy Keratotic lesion Low back pain Left knee pain Surgical History Hx of cervical discectomy Aortic valve replaced History of carpal tunnel release History of inguinal hernia repair S/P hip arthroscopy Family History Father Cancer Mother Medical history unknown Social History Housing: House Alcohol intake: former Patient Tobacco Use Status: Never used Tobacco e-Cigarette/Vaping Use: Never Used Second Hand Smoke Exposure: Yes service: No Current occupational status: retired Cognitive needs: No Hearing needs: No Vision needs: Yes (reading glasses) Questionnaire PHQ-9 Over the last 2 weeks, how often have you been bothered by any of the following problems? 1. Little interest or pleasure in doing things: not at all 2. Feeling down, depressed, or hopeless: not at all 3. Trouble falling or staying asleep, or sleeping too much: not at all 4. Feeling tired or having little energy: not at all 5. Poor appetite or overeating: not at all 6. Feeling bad about yourself - or that you are a failure or have let yourself or your family down: not at all 7. Trouble concentrating on things, such as reading the newspaper or watching television: not at all 8. Moving or speaking so slowly that other people could have noticed. Or the opposite - being so fidgety or restless that you have been moving around a lot more than usual: not at all 9. Thoughts that you would be better off or of hurting yourself in some way: not at all Total score: 0 Depression Screening Interpretation: Negative Depression Screening Done: Yes 68472 - PHQ-9 Billing: Yes Source: Developed by Drs. Arthur Mittal, Farzana Cervantes, Bladimir Shah and colleagues, with an educational sumaya from [employer]. Thrive Questionnaire Date Thrive assessed: 10/24/23 AUDIT C Alcohol Use Questionnaire (AUDIT-C) 1. How often do you have a drink containing alcohol?: Never 3. How often do you have six or more drinks on one occasion?: Never Total Score: 0 Score Reviewed/Action Taken: Yes CHARLY-7 AMB Questionnaire CHARLY-7 Date CHARLY - 7 assessed: 10/24/23 Source: Developed by Drs. Arthur Mittal, Bladimir Powers and colleagues, with an educational sumaya from [employer]. Review of Systems Const Denies chills, Reports fatigue, Denies fever(s) and Denies headache(s) ENT Denies dysphagia, Denies dizziness, Denies otalgia, Denies headache(s), Reports neck pain (chronic), Denies odynophagia and Denies sore throat Card Denies chest pain, Denies palpitations and Reports dyspnea on exertion (mild - is now on oxygen inhalation) Resp Denies chest congestion, Denies cough and Reports dyspnea on exertion (mild - is now on oxygen inhalation) GI Denies abdominal pain, Denies constipation, Denies dysphagia, Denies heartburn, Denies diarrhea, Denies nausea, Denies odynophagia and Denies vomiting Denies dysuria, Denies nocturia and Denies urinary frequency Musc Reports back pain (especially over the left lower back - chronic), Reports arthralgias (left knee and over the left hip), Reports neck pain (chronic) and Reports stiffness Skin/Breast Denies rash Neuro Denies dizziness and Denies headache(s) Psych Denies anxiety Endo Reports fatigue and Denies palpitations Physical exam (Primary Care) Vital Signs: Physical examination is not performed as visit / consultation today is done over the phone - Telehealth visit All physical findings indicated here, if present, are as per patient's and / or caregivers / proxy's report Tobacco/Smoking Status: Tobacco use Status Tobacco use date assessed 10/24/23 01/05/24 17:33 Patient Tobacco Use Status Never used Tobacco 01/05/24 17:33 e-Cigarette/Vaping Use Never Used 01/05/24 17:33 PHQ-9: PHQ-9 Score PHQ-9: Total score 0 01/05/24 18:07 Depression Screening Interpretation: Negative Thrive Assessment: Date of Thrive Assessment Date Thrive assessed 10/24/23 01/05/24 17:33 Telehealth Telehealth Telehealth Platform: Telephone Location of provider rendering services: practice address Location of patient: address on file Patient Identification confirmed using: Name, : Yes Patient verbally consented to treatment: Yes Patient verbally consented to billing insurance company: Yes Patient informed of any privacy concerns related to visit: Yes Minutes spent on Phone/Video with Pt.: 23 Results Reviewed Results Reviewed: Laboratory Tests 12/18/23 12:15 Sodium 139 Potassium 4.4 Creatinine 1.62 H Estimated GFR 40 Random Glucose 168 H Calcium 8.7 D Assessment and Plan Assessment & Plan (1) HFrEF (heart failure with reduced ejection fraction): Code(s): I50.20 - Unspecified systolic (congestive) heart failure Plan: Patient is again currently reportedly compensated - LVEF in February 2023 was mostly unchanged from a couple of years ago (echocardiogram done back in July 2021 revealed EF of 35 to 40% with moderate global hypokinesia and moderate diastolic dysfunction) He was admitted to [facility] back in February 2023 for new onset atrial flutter and 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 and was found to have a BNP of 5046 - symptoms responded to IV diuresis He was admitted to [facility] again a couple of times over the past 2-3 months for CHF exacerbation as well as COPD exacerbation He currently remains on low dose Furosemide at 20 mg QD - could not tolerate higher doses due to ZARA Continue Carvedilol 25 mg BID Reinforced fluid restriction but cautioned as well about staying adequately hydrated due to his CKD - reminded that he has to find some balance to his fluid intake (2) Atrial flutter: Code(s): I48.92 - Unspecified atrial flutter Qualifiers: Atrial flutter type: unspecified Qualified Code(s): I48.92 - Unspecified atrial flutter Plan: Patient was in sinus rhythm when he was last seen physically here in the office a couple of months ago Continue Eliquis 2.5 mg BID for thromboembolism prophylaxis (3) 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 Duque (4) DISH (diffuse idiopathic skeletal hyperostosis): Code(s): M48.10 - Ankylosing hyperostosis [[place]], site unspecified Plan: Continue Tramadol 50 mg TID PRN for pain Follow-up with Neurosurgery as scheduled - sees Dr. Torres at [facility] Relates that he was sent for an open MRI of his lumbar spine but he could not even tolerate the wider confines of the open MRI States that he will have to be knocked out completely for him to be able to complete the procedure - advised that he has to be able to follow some instructions while he is in the machine and getting his scan done so getting knocked out for the procedure is not an option at this time Repeat lumbar spine x-rays done in January 2023 revealed advanced multilevel degenerative changes in the lumbar spine, with an L3 anterior compression that may have possibly progressed from last year (2021) (5) Osteoarthritis of left hip: Code(s): M16.12 - Unilateral primary osteoarthritis, left hip Qualifiers: Osteoarthritis type: primary Qualified Code(s): M16.12 - Unilateral primary osteoarthritis, left hip Plan: Left hip x-rays done at [facility] in January 2023 revealed (+) mild degenerative joint space loss Will consider referring him to orthopedics for further management if his hip pain gets worse (6) Benign essential hypertension: Code(s): I10 - Essential (primary) hypertension Plan: Reinforced low sodium diet - goal is systolic BP of at least 140 to 150 mm or less Continue Carvedilol 25 mg BID and Furosemide 20 mg QD Valsartan 40 mg was discontinued sometime last year due to ZARA and patient could not tolerate Rx (severe dizziness and weakness) when cardiology tried to start him back on this a few months ago (7) Pure hypercholesterolemia: Code(s): E78.00 - Pure hypercholesterolemia, unspecified Plan: Results of his labs done a few weeks ago reviewed and discussed with patient but advised that these labs are limited and do not include a fasting lipid profile Reinforced low cholesterol diet Continue Atorvastatin 40 mg once a day; he was also previously on Ezetimibe 10 mg QD but patient is unclear as to when he stopped taking this Will recheck his labs and fasting lipids in 4 months for follow up (8) COPD (chronic obstructive pulmonary disease): Code(s): J44.9 - Chronic obstructive pulmonary disease, unspecified Qualifiers: COPD type: unspecified COPD Qualified Code(s): J44.9 - Chronic obstructive pulmonary disease, unspecified Plan: He reportedly had acute hypoxic respiratory failure last year when he presented to the ER at [facility] with symptoms of progressive dyspnea and heart failure Was admitted to [facility] in February 2023 for new onset atrial flutter and again last month for CHF exacerbation Chest x-rays in January 2023 revealed (+) right pleural effusion He was admitted again to [facility] a couple of times over the past few months for COPD exacerbation with CHF exacerbation States that he is currently doing well and is now using his oxygen (inhalation) regularly as prescribed, especially when he is moving about and with activity Continue Advair Diskus 250-50 mcg 1 inhalation BID, ProAir HFA 2 puffs 4 times a day as needed and Anoro Ellipta He is now also on Prednisone 40 mg QD Follow-up with pulmonary (Dr. Echeverria) at [facility] as scheduled (9) Impaired fasting glucose: Code(s): R73.01 - Impaired fasting glucose Plan: In-office HgbA1c was previously at 6.0% and was normal at 5.7% when last checked in November 2021 - will continue to monitor this closely Reinforced low calorie diet / exercise as tolerated (10) Chronic kidney disease, stage III (moderate): Code(s): N18.30 - Chronic kidney disease, stage 3 unspecified Qualifiers: Chronic kidney disease stage 3 subtype: stage 3b (GFR 30-44) Qualified Code(s): N18.32 - Chronic kidney disease, stage 3b Plan: Patient is advised that his renal function appears to have declined slightly since his last visit, likely compounded by his recent CHF exacerbations and hospitalization Will continue to monitor his renal function regularly Follow up with nephrology as scheduled (11) Epilepsy: Code(s): G40.909 - Epilepsy, unspecified, not intractable, without status epilepticus Qualifiers: Epilepsy type: unspecified Intractability: not intractable Status epilepticus: without status epilepticus Qualified Code(s): G40.909 - Epilepsy, unspecified, not intractable, without status epilepticus Plan: He reports no seizures lately Continue Levetiracetam 500 mg BID Follow-up with Neurology as scheduled (12) Dementia: Code(s): F03.90 - Unspecified dementia, unspecified severity, without behavioral disturbance, psychotic disturbance, mood disturbance, and anxiety Qualifiers: Dementia behavioral disturbance: without behavioral disturbance Dementia type: unspecified type Qualified Code(s): F03.90 - Unspecified dementia without behavioral disturbance Plan: Continue Donepezil 10 mg QHS Follow up with neurology as scheduled (13) GERD without esophagitis: Code(s): K21.9 - Gastro-esophageal reflux disease without esophagitis Plan: Dietary restrictions reinforced Continue Omeprazole 20 mg QD (14) Vitamin D deficiency: Code(s): E55.9 - Vitamin D deficiency, unspecified Plan: Continue Vitamin D3 2000 units 1 tablet every other day (15) Basal cell carcinoma: Code(s): C44.91 - Basal cell carcinoma of skin, unspecified Qualifiers: Basal cell carcinoma location: unspecified site Qualified Code(s): C44.91 - Basal cell carcinoma of skin, unspecified Plan: S/P excision of BCC lesions from his back by Dr. Zamorano a few months ago Follow-up with dermatology as scheduled - was started on Imiquimod cream but patient developed a rash and he stopped using the cream a few months ago Plan Follow up in 4 months Orders: Orders Comprehensive [place]. Panel Fast 4 Months E78.00 - Pure hypercholesterolemia, unspecified TSH reflex Free T4 4 Months E78.00 - Pure hypercholesterolemia, unspecified B Type Natriuretic Peptide 4 Months I50.9 - Heart failure, unspecified UA CC w/rflx Micro + Cult 4 Months R30.0 - Dysuria Vitamin B12 and Folate 4 Months E53.8 - Deficiency of other specified B group vitamins Vitamin D 25-OH Total 4 Months E55.9 - Vitamin D deficiency, unspecified Complete Blood Count Auto Diff 4 Months D64.9 - Anemia, unspecified Lipid Panel 4 Months E78.00 - Pure hypercholesterolemia, unspecified Medications: Changed From prednisone 20 mg PO DAILY 5 days 5 tabs 0RF To prednisone 40 mg PO DAILY From carvedilol must administer with a meal/food 12.5 mg PO BID 30 days 60 tabs 5RF To carvedilol must administer with a meal/food 25 mg PO BID Coding Level of Care Code Tele Est Pt Level 4 (69278) Diagnoses HFrEF (heart failure with reduced ejection fraction) I50.20 Atrial flutter, unspecified type I48.92 Atrial flutter type: unspecified 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 M47.12 DISH (diffuse idiopathic skeletal hyperostosis) M48.10 Primary osteoarthritis of left hip M16.12 Osteoarthritis type: primary Benign essential hypertension I10 Pure hypercholesterolemia E78.00 Chronic obstructive pulmonary disease, unspecified COPD type J44.9 COPD type: unspecified COPD Impaired fasting glucose R73.01 Stage 3b chronic kidney disease N18.32 Chronic kidney disease stage 3 subtype: stage 3b (GFR 30-44) Nonintractable epilepsy without status epilepticus, unspecified epilepsy type G40.909 Epilepsy type: unspecified Intractability: not intractable Status epilepticus: without status epilepticus Dementia without behavioral disturbance, unspecified dementia type F03.90 Dementia behavioral disturbance: without behavioral disturbance Dementia type: unspecified type GERD without esophagitis K21.9 Vitamin D deficiency E55.9 Basal cell carcinoma (BCC), unspecified site C44.91 Basal cell carcinoma location: unspecified site
== END 2024-01-05 18:20 | disposition home or self-care (01) ==
LOC: HO.HMGH 17:30
PROVIDERS: PCP Internal Medicine; Visit Provider Internal Medicine
DX: I13.0 Hypertensive heart and chronic kidney disease with heart failure and stage 1 through stage 4 chronic kidney disease, or unspecified chronic kidney disease (principal); I50.20 Unspecified systolic (congestive) heart failure; N18.32 Chronic kidney disease, stage 3b; I48.92 Unspecified atrial flutter; M47.12 Other spondylosis with myelopathy, cervical region; M48.10 Ankylosing hyperostosis [Forestier], site unspecified; M16.12 Unilateral primary osteoarthritis, left hip; E78.00 Pure hypercholesterolemia, unspecified; J44.9 Chronic obstructive pulmonary disease, unspecified; R73.01 Impaired fasting glucose; G40.909 Epilepsy, unspecified, not intractable, without status epilepticus; F03.90 Unspecified dementia, unspecified severity, without behavioral disturbance, psychotic disturbance, mood disturbance, and anxiety
CPT/HCPCS: 99443

== ENCOUNTER → 2024-04-21 23:59 | Outpatient (BNV) | payer MEDICARE, OTHER, SELFPAY | PROVIDERS: PCP Internal Medicine; Visit Provider Internal Medicine | DX: I13.0 Hypertensive heart and chronic kidney disease with heart failure and stage 1 through stage 4 chronic kidney disease, or unspecified chronic kidney disease (principal); J44.1 Chronic obstructive pulmonary disease with (acute) exacerbation; N18.2 Chronic kidney disease, stage 2 (mild); I50.23 Acute on chronic systolic (congestive) heart failure; C44.91 Basal cell carcinoma of skin, unspecified | CPT/HCPCS: G0179 ==

== ENCOUNTER 2024-05-10 15:40 | Outpatient (AMB) | payer MEDICARE, OTHER, SELFPAY ==
--- NOTE | 2024-05-10 15:40 | A.OFFPC_ITS ---
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 Accompanied by: Spouse Allergies morphine Allergy (Unknown, Verified 05/10/24 16:23) nausea and vomiting oxycodone Allergy (Unknown, Verified 05/10/24 16:23) nausea and vomiting Medication List - Last Reconciled 05/10/24 by Braxton Parikh MD albuterol sulfate 90 mcg/actuation 2 puffs PO TID-QID PRN amoxicillin 2,000 mg (4 x 500 mg) PO ONCE 1 day apixaban (Eliquis) 2.5 mg PO BID carvedilol 25 mg PO BID cholecalciferol (vitamin D3) 25 mcg PO DAILY donepezil 10 mg PO BEDTIME 90 days fluticasone furoate 100 mcg/actuation (Arnuity Ellipta) 1 inh inhalation DAILY [humidifier for oxygen machine As directed] levetiracetam 500 mg PO .Q PM levetiracetam 250 mg PO .Q AM Lipitor (atorvastatin) 40 mg PO DAILY 90 days NS omeprazole 20 mg PO BID 90 days Oxygen Home Use 2 liters continuous quetiapine 50 mg PO BEDTIME torsemide 40 mg PO QAM tramadol 50 mg PO Q8H PRN 30 days umeclidinium-vilanterol 62.5-25 mcg/actuation (Anoro Ellipta) 1 inh inhalation DAILY Tobacco use date assessed: 05/10/24 Fall risk assessment: 2 + Falls in past year Last assessed Fall Risk: 05/10/24 Dental Screening Dental Screen Date: 05/10/24 Did you have a dental visit in the last 12 months?: Yes Did you have a dental problem in the last 6 months where you did not have access to dental care?: No Was dental information given to patient?: Patient has dentist HPI COPD, CHF - see comments HPI0 Details Patient's follow-up visit / consultation today is done over the phone - this is a Telehealth visit Patient's current medications have been reviewed and verified with patient and / or caregiver / proxy and have been updated accordingly in the medication list I have not seen patient since December 2023, which was also a telehealth visit He was apparently admitted to [facility] in February 2024 for a few days after he was brought to the hospital following a fall at his residence - he reportedly was trying to get up from his bed when he fell forward and hit his head He was reportedly found by EMS upon initial evaluation to have oxygen saturation in the 80s and he was placed on oxygen via a nonrebreather mask and his oxygen saturation promptly increased to 100% Patient could not recall the events of his fall but per his , he supposedly sat on the edge of the bed after coming back from the bathroom and suddenly fell forward His could not get him to respond for about 10 minutes after which he came to He was worked up in the hospital extensively, including head and neck CT, chest x-rays, EkG and labs Seizure was also entertained as a possibility as patient has seizure disorder but all of his tests ultimately came back okay and he was eventually discharged back home with VNA and home care services Patient also had a pulmonary follow up via telehealth with Dr. Echeverria a few days ago, and was advised to continue on oxygen inhalation 17/03 and all of his current meds, with follow up scheduled again in 6 months' time Patient states that he currently feels okay Denies any headaches or dizziness Denies any chest pains, no increased SOB, especially when he has his oxygen on No nausea/vomiting, no abdominal pain No change in bowel habits noted His would like for him to get Rx for a left knee brace and also his Tramadol Rx [facility] Medical History Chronic kidney disease, stage III (moderate) HFrEF (heart failure with reduced ejection fraction) Impaired fasting glucose Overweight (BMI 25.0-29.9) Vitamin D deficiency Benign essential hypertension DISH (diffuse idiopathic skeletal hyperostosis) COPD (chronic obstructive pulmonary disease) Pure hypercholesterolemia GERD without esophagitis Epilepsy Keratotic lesion Low back pain Left knee pain Surgical History Hx of cervical discectomy Aortic valve replaced History of carpal tunnel release History of inguinal hernia repair S/P hip arthroscopy Family History Father Cancer Mother Medical history unknown Social History Housing: House Alcohol intake: former Patient Tobacco Use Status: Never used Tobacco e-Cigarette/Vaping Use: Never Used Second Hand Smoke Exposure: Yes service: No Current occupational status: retired Cognitive needs: No Hearing needs: No Vision needs: Yes (reading glasses) Questionnaire PHQ-9 Over the last 2 weeks, how often have you been bothered by any of the following problems? 1. Little interest or pleasure in doing things: not at all 2. Feeling down, depressed, or hopeless: not at all 3. Trouble falling or staying asleep, or sleeping too much: not at all 4. Feeling tired or having little energy: not at all 5. Poor appetite or overeating: not at all 6. Feeling bad about yourself - or that you are a failure or have let yourself or your family down: not at all 7. Trouble concentrating on things, such as reading the newspaper or watching television: not at all 8. Moving or speaking so slowly that other people could have noticed. Or the opposite - being so fidgety or restless that you have been moving around a lot more than usual: not at all 9. Thoughts that you would be better off or of hurting yourself in some way: not at all Total score: 0 Depression Screening Interpretation: Negative Depression Screening Done: Yes 58784 - PHQ-9 Billing: Yes Source: Developed by Drs. Arthur Mittal, Farzana Cervantes, Bladimir Shah and colleagues, with an educational sumaya from [employer]. Thrive Questionnaire Date Thrive assessed: 05/10/24 I am a: Patient What is your living situation today?: I have a steady place to live Within the past 12 months, did the food you bought not last and you didn't have the money to get more?: Never true Within the past 12 months, did you worry whether your food would run out before you got money to buy more?: Never true Do you have trouble paying for medicines?: No Do you have trouble getting transportation to medical appointments?: No Do you have trouble paying your heating and electricity bill?: No Do you have trouble taking care of your child, family member or friend?: No Do you have trouble with day-to-day activities such as bathing, preparing meals, shopping, managing finances, etc.?: No Are you currently unemployed and looking for a job?: No Are you interested in more education?: No Please select the resources that you would like help with: None Currently or been in a relationship where the following occur: No concerns reported THRIVE Score: 0 AUDIT C Alcohol Use Questionnaire (AUDIT-C) 1. How often do you have a drink containing alcohol?: Never 3. How often do you have six or more drinks on one occasion?: Never Total Score: 0 Score Reviewed/Action Taken: Yes CHARLY-7 AMB Questionnaire CHARLY-7 Date CHARLY - 7 assessed: 05/10/24 Feeling nervous, anxious, or on edge: 0 = Not at all Not being able to stop or control worryin = Not at all Worrying too much about different things: 0 = Not at all Trouble relaxin = Not at all Being so restless that it is hard to sit still: 0 = Not at all Becoming easily annoyed or irritable: 0 = Not at all Feeling afraid as if something awful might happen: 0 = Not at all Total CHARLY-7 score (0-4 normal; 5-9 mild; 10-14 moderate; 15-21 severe): 0 Source: Developed by Drs. Arthur Mittal, Farzana Cervantes, Bladimir Shah and colleagues, with an educational sumaya from [employer]. Review of Systems Const Denies chills, Reports fatigue, Denies fever(s) and Denies headache(s) ENT Denies dysphagia, Denies dizziness, Denies otalgia, Denies headache(s), Reports neck pain (chronic), Denies odynophagia and Denies sore throat Card Denies chest pain, Denies palpitations and Reports dyspnea on exertion (mild - is now on oxygen inhalation 24/7) Resp Denies chest congestion, Denies cough and Reports dyspnea on exertion (mild - is now on oxygen inhalation 24/7) GI Denies abdominal pain, Denies constipation, Denies dysphagia, Denies heartburn, Denies diarrhea, Denies nausea, Denies odynophagia and Denies vomiting Denies dysuria, Denies nocturia and Denies urinary frequency Musc Reports back pain (especially over the left lower back - chronic), Reports arthralgias (left knee and over the left hip), Reports neck pain (chronic) and R eports stiffness Skin/Breast Denies rash Neuro Denies dizziness and Denies headache(s) Psych Denies anxiety Endo Reports fatigue and Denies palpitations Physical exam (Primary Care) Vital Signs: Physical examination is not performed as visit / consultation today is done over the phone - Telehealth visit All physical findings indicated here, if present, are as per patient's and / or caregivers / proxy's report Tobacco/Smoking Status: Tobacco use Status Tobacco use date assessed 05/10/24 05/10/24 15:46 Patient Tobacco Use Status Never used Tobacco 05/10/24 15:46 e-Cigarette/Vaping Use Never Used 05/10/24 15:46 PHQ-9: PHQ-9 Score PHQ-9: Total score 0 05/10/24 16:42 Depression Screening Interpretation: Negative Thrive Assessment: Date of Thrive Assessment Date Thrive assessed 05/10/24 05/10/24 15:46 Currently or been in a relationship where the following occur: No concerns reported Telehealth Telehealth Telehealth Platform: Telephone Location of provider rendering services: practice address Location of patient: address on file Patient Identification confirmed using: Name, : Yes Telehealth method: voice only Patient verbally consented to treatment: Yes Patient verbally consented to billing insurance company: Yes Patient informed of any privacy concerns related to visit: Yes Minutes spent on Phone/Video with Pt.: 22 Assessment and Plan Assessment & Plan (1) COPD (chronic obstructive pulmonary disease): Code(s): J44.9 - Chronic obstructive pulmonary disease, unspecified Qualifiers: COPD type: unspecified COPD Qualified Code(s): J44.9 - Chronic obstructive pulmonary disease, unspecified Plan: He reportedly had acute hypoxic respiratory failure last year when he presented to the ER at [facility] with symptoms of progressive dyspnea and heart failure He was admitted to [facility] in February 2023 for new onset atrial flutter Chest x-rays in January 2023 revealed (+) right pleural effusion He was admitted again to [facility] a couple of times over the past few months for COPD exacerbation with CHF exacerbation States that he is currently doing well and is now using his oxygen (inhalation) 24/7 as prescribed, especially when he is moving about and with activity Continue Advair Diskus 250-50 mcg 1 inhalation BID, ProAir HFA 2 puffs 4 times a day as needed and Anoro Ellipta He is now also on Prednisone 40 mg QD Follow-up with pulmonary (Dr. 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 and was found to have a BNP of 5046 - symptoms responded to IV diuresis He was admitted to [facility] again a couple of times over the past 2-3 months for CHF exacerbation as well as COPD exacerbation He currently remains on low dose Furosemide at 20 mg QD - could not tolerate higher doses due to ZARA Continue Carvedilol 25 mg BID Reinforced fluid restriction but cautioned as well about staying adequately hydrated due to his CKD (3) Atrial flutter: Code(s): I48.92 - Unspecified atrial flutter Qualifiers: Atrial flutter type: unspecified Qualified Code(s): I48.92 - Unspecified atrial flutter Plan: Patient was in sinus rhythm when he was last seen physically here in the office in October 2023 Continue Eliquis 2.5 mg BID for thromboembolism prophylaxis (4) 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 Duque (5) DISH (diffuse idiopathic skeletal hyperostosis): Code(s): M48.10 - Ankylosing hyperostosis [[place]], site unspecified Plan: Continue Tramadol 50 mg TID PRN for pain - Rx refilled Follow-up with Neurosurgery as scheduled - sees Dr. Torres at [facility] Relates that he was sent for an open MRI of his lumbar spine but he could not even tolerate the wider confines of the open MRI States that he will have to be knocked out completely for him to be able to complete the procedure - advised that he has to be able to follow some instructions while he is in the machine and getting his scan done so getting knocked out for the procedure is not an option at this time Repeat lumbar spine x-rays done in January 2023 revealed advanced multilevel degenerative changes in the lumbar spine, with an L3 anterior compression that may have possibly progressed from 2021 (6) Osteoarthritis of left hip: Code(s): M16.12 - Unilateral primary osteoarthritis, left hip Qualifiers: Osteoarthritis type: primary Qualified Code(s): M16.12 - Unilateral primary osteoarthritis, left hip Plan: Left hip x-rays done at [facility] in January 2023 revealed (+) mild degenerative joint space loss Will consider referring him to orthopedics for further management if his hip pain gets worse (7) Benign essential hypertension: Code(s): I10 - Essential (primary) hypertension Plan: Reinforced low sodium diet - goal is systolic BP of at least 140 to 150 mm or less Continue Carvedilol 25 mg BID and Torsemide 40 mg Q AM Valsartan 40 mg was discontinued sometime last year due to ZARA and patient could not tolerate Rx (severe dizziness and weakness) when cardiology tried to start him back on this a few months ago (8) Pure hypercholesterolemia: Code(s): E78.00 - Pure hypercholesterolemia, unspecified Plan: Reinforced low cholesterol diet Continue Atorvastatin 40 mg QD; he was also previously on Ezetimibe 10 mg QD but patient is unclear as to when he stopped taking this Will try to recheck his labs and fasting lipids in 3 months for follow up as he has not had his fasting lipids checked since July 2023 (9) Impaired fasting glucose: Code(s): R73.01 - Impaired fasting glucose Plan: His HgbA1c was previously at 6.1% when last checked in July 2023 Reinforced low calorie/low card diet (10) Chronic kidney disease, stage III (moderate): Code(s): N18.30 - Chronic kidney disease, stage 3 unspecified Qualifiers: Chronic kidney disease stage 3 subtype: stage 3b (GFR 30-44) Qualified Code(s): N18.32 - Chronic kidney disease, stage 3b Plan: His renal function appeared stable when his labs were last checked in November 2023 Will continue to monitor his renal function regularly Follow up with nephrology as scheduled (11) Epilepsy: Code(s): G40.909 - Epilepsy, unspecified, not intractable, without status epilepticus Qualifiers: Epilepsy type: unspecified Intractability: not intractable Status epilepticus: without status epilepticus Qualified Code(s): G40.909 - Epilepsy, unspecified, not intractable, without status epilepticus Plan: He reports no seizures lately Continue Levetiracetam 250 mg Q AM Follow-up with Neurology as scheduled (12) Dementia: Code(s): F03.90 - Unspecified dementia, unspecified severity, without behavioral disturbance, psychotic disturbance, mood disturbance, and anxiety Qualifiers: Dementia type: unspecified type Dementia behavioral disturbance: without behavioral disturbance Qualified Code(s): F03.90 - Unspecified dementia without behavioral disturbance Plan: Continue Donepezil 10 mg QHS Follow up with neurology as scheduled (13) GERD without esophagitis: Code(s): K21.9 - Gastro-esophageal reflux disease without esophagitis Plan: Dietary restrictions reinforced Continue Omeprazole 20 mg QD (14) Vitamin D deficiency: Code(s): E55.9 - Vitamin D deficiency, unspecified Plan: Continue Vitamin D3 2000 units 1 tablet every other day Plan Follow up in 3 months Orders: Orders Complete Blood Count Auto Diff 3 Months D64.9 - Anemia, unspecified Lipid Panel 3 Months E78.00 - Pure hypercholesterolemia, unspecified Comprehensive [place]. Panel Fast 3 Months E78.00 - Pure hypercholesterolemia, unspecified Hemoglobin A1c 3 Months R73.01 - Impaired fasting glucose TSH reflex Free T4 3 Months E78.00 - Pure hypercholesterolemia, unspecified B Type Natriuretic Peptide 3 Months I50.9 - Heart failure, unspecified UA CC w/rflx Micro + Cult 3 Months R30.0 - Dysuria Vitamin D 25-OH Total 3 Months E55.9 - Vitamin D deficiency, unspecified Vitamin B12 and Folate 3 Months E53.8 - Deficiency of other specified B group vitamins Medications: New [KNEE BRACE (left)] As directed 1 ea 0RF M17.12 - Unilateral primary osteoarthritis, left knee Refilled tramadol 50 mg PO Q8H 30 days PRN 90 tabs 0RF pain Coding Level of Care Code Tele Est Pt Level 4 (63507) Diagnoses Chronic obstructive pulmonary disease, unspecified COPD type J44.9 COPD type: unspecified COPD HFrEF (heart failure with reduced ejection fraction) I50.20 Atrial flutter, unspecified type I48.92 Atrial flutter type: unspecified 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 M47.12 DISH (diffuse idiopathic skeletal hyperostosis) M48.10 Primary osteoarthritis of left hip M16.12 Osteoarthritis type: primary Benign essential hypertension I10 Pure hypercholesterolemia E78.00 Impaired fasting glucose R73.01 Stage 3b chronic kidney disease N18.32 Chronic kidney disease stage 3 subtype: stage 3b (GFR 30-44) Nonintractable epilepsy without status epilepticus, unspecified epilepsy type G40.909 Epilepsy type: unspecified Intractability: not intractable Status epilepticus: without status epilepticus Dementia without behavioral disturbance, unspecified dementia type F03.90 Dementia type: unspecified type Dementia behavioral disturbance: without behavioral disturbance GERD without esophagitis K21.9 Vitamin D deficiency E55.9
== END 2024-05-10 17:24 | disposition home or self-care (01) ==
LOC: HO.HMCH 15:40
PROVIDERS: PCP Internal Medicine; Visit Provider Internal Medicine
DX: J44.9 Chronic obstructive pulmonary disease, unspecified (principal); I50.20 Unspecified systolic (congestive) heart failure; I48.92 Unspecified atrial flutter; N18.32 Chronic kidney disease, stage 3b; G40.909 Epilepsy, unspecified, not intractable, without status epilepticus; F03.90 Unspecified dementia, unspecified severity, without behavioral disturbance, psychotic disturbance, mood disturbance, and anxiety; M47.12 Other spondylosis with myelopathy, cervical region; M48.10 Ankylosing hyperostosis [Forestier], site unspecified; M16.12 Unilateral primary osteoarthritis, left hip; I10 Essential (primary) hypertension; E78.00 Pure hypercholesterolemia, unspecified; R73.01 Impaired fasting glucose

== ENCOUNTER → 2024-05-10 15:40 | Outpatient (BNVA) | payer MEDICARE, OTHER, SELFPAY | PROVIDERS: PCP Internal Medicine; Visit Provider Internal Medicine ==

== ENCOUNTER 2024-09-27 10:11 | Outpatient (REF) | payer MEDICARE, OTHER, SELFPAY ==
--- NOTE | ~2024-09-27 | XR_ITS ---
EXAMINATION: XR KNEE 3 VIEWS LEFT HISTORY: M25.562 - Pain in left knee COMPARISON: Comparison is made with the prior examination dated 11/22/2020. FINDINGS: Three views of the left knee are submitted. Osseous mineralization is normal. There is no fracture or dislocation. There is severe tricompartmental osteoarthritis with joint space narrowing and osteophyte formation. There is a small to moderate joint effusion. There are vascular calcifications. XR/XR knee LT 3V IMPRESSION: Small to moderate joint effusion. Severe tricompartmental osteoarthritis. Electronically signed by: Arthur Valles MD 09/28/2024 07:59 AM EST
--- OUTSIDE RECORDS SUMMARY | 2024-09-27 12:11 | XMS_ITS | Clinical Summary ---
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
== END 2024-09-27 10:12 | disposition home or self-care (01) ==
LOC: HO.XRAY 10:11
PROVIDERS: PCP Internal Medicine
DX: S01.00XA Unspecified open wound of scalp, initial encounter (principal); M17.12 Unilateral primary osteoarthritis, left knee; I12.9 Hypertensive chronic kidney disease with stage 1 through stage 4 chronic kidney disease, or unspecified chronic kidney disease; N18.2 Chronic kidney disease, stage 2 (mild); J44.9 Chronic obstructive pulmonary disease, unspecified; I48.91 Unspecified atrial fibrillation; F03.90 Unspecified dementia, unspecified severity, without behavioral disturbance, psychotic disturbance, mood disturbance, and anxiety; Z79.01 Long term (current) use of anticoagulants
CPT/HCPCS: 73562; 96127; 99212

== ENCOUNTER 2024-09-27 10:11 | Outpatient (AMB) | payer MEDICARE, OTHER, SELFPAY ==
--- NOTE | 2024-09-27 10:12 | A.OFFPC_ITS ---
Vital Signs 09/27/24 10:14 Height 5 ft 10 in Weight 155 lb 4 oz BMI 22.3 BP 112/60 Blood Pressure Location Rt brachial Position Sitting Temp 96.9 F Temp Source Skin Intake Visit Reasons: wound care appointment Intake Note: Patient is here to follow up on wound care on scalp and face. 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 Required: No Sports Therapist: Present Allergies morphine Allergy (Unknown, Verified 09/27/24 10:25) nausea and vomiting oxycodone Allergy (Unknown, Verified 09/27/24 10:25) nausea and vomiting Medication List - Last Reconciled 09/27/24 by JAYDA Dalton albuterol sulfate 90 mcg/actuation 2 puffs PO TID-QID PRN amoxicillin 2,000 mg (4 x 500 mg) PO ONCE 1 day apixaban (Eliquis) 2.5 mg PO BID carvedilol 25 mg PO BID cholecalciferol (vitamin D3) 25 mcg PO DAILY donepezil 10 mg PO BEDTIME 90 days fluticasone furoate 100 mcg/actuation (Arnuity Ellipta) 1 inh inhalation DAILY [humidifier for oxygen machine As directed] [KNEE BRACE (left) As directed] levetiracetam 500 mg PO .Q PM levetiracetam 250 mg PO .Q AM Lipitor (atorvastatin) 40 mg PO DAILY 90 days NS omeprazole 20 mg PO BID 90 days Oxygen Home Use 2 liters continuous quetiapine 50 mg PO BEDTIME torsemide 40 mg PO QAM tramadol 50 mg PO Q8H PRN 30 days umeclidinium-vilanterol 62.5-25 mcg/actuation (Anoro Ellipta) 1 inh inhalation DAILY Tobacco use date assessed: 09/27/24 Fall risk assessment: No Falls in past year Last assessed Fall Risk: 09/27/24 Dental Screening Dental Screen Date: 09/27/24 Did you have a dental visit in the last 12 months?: Yes Did you have a dental problem in the last 6 months where you did not have access to dental care?: No Was dental information given to patient?: Patient has dentist HPI wound care appointment HPI Details The patient is a 80-year-old male with significant past medical history chronic kidney disease stage II, COPD osteoarthritis of the left knee, osteoarthritis of the left, AFib on Eliquis, dementia, hypertension, Reports that his medication list is off, he will send us the most up-to-date list Patient is presenting in office with concern of nonhealing scalp wound He reports that about 8 months ago he sustained a fall and ended up with a scab on the top of his head Reports that he picked at it but has been using antibiotic ointment to the area 2 to 3 times a day The ear continued to be sore and does not seem like it is healing top of head wound: 1.5 cmx 1.4 cm, jone-wound red/swollen, wound bed with whitish covering right side face: two scabbed over area superior one 0.4 x0.3 cm and inferior 0.3 cmx 0.3 cm Will referred to [facility] in [place] He denies chest pain, shortness of breath or heart palpitation The patient c/o right knee pain-reports that it has been worse in the mornings especially, hx of osteoarthritis He denies any recent injuries/trauma to his left knee Will ordered a left knee xray to evaluate [facility] Medical History Chronic kidney disease, stage III (moderate) HFrEF (heart failure with reduced ejection fraction) Impaired fasting glucose Overweight (BMI 25.0-29.9) Vitamin D deficiency Benign essential hypertension DISH (diffuse idiopathic skeletal hyperostosis) COPD (chronic obstructive pulmonary disease) Pure hypercholesterolemia GERD without esophagitis Epilepsy Keratotic lesion Low back pain Left knee pain Surgical History Hx of cervical discectomy Aortic valve replaced History of carpal tunnel release History of inguinal hernia repair S/P hip arthroscopy Family History Father Cancer Mother Medical history unknown Social History Housing: House Alcohol intake: former Patient Tobacco Use Status: Never used Tobacco e-Cigarette/Vaping Use: Never Used Second Hand Smoke Exposure: Yes service: No Current occupational status: retired Cognitive needs: Yes (scooter, wheelchair) Hearing needs: No Vision needs: Yes (reading glasses) Questionnaire PHQ-9 Over the last 2 weeks, how often have you been bothered by any of the following problems? 1. Little interest or pleasure in doing things: not at all 2. Feeling down, depressed, or hopeless: not at all 3. Trouble falling or staying asleep, or sleeping too much: not at all 4. Feeling tired or having little energy: not at all 5. Poor appetite or overeating: not at all 6. Feeling bad about yourself - or that you are a failure or have let yourself or your family down: not at all 7. Trouble concentrating on things, such as reading the newspaper or watching television: not at all 8. Moving or speaking so slowly that other people could have noticed. Or the opposite - being so fidgety or restless that you have been moving around a lot more than usual: not at all 9. Thoughts that you would be better off or of hurting yourself in some way: not at all Total score: 0 Depression Screening Interpretation: Negative Depression Screening Done: Yes 05206 - PHQ-9 Billing: Yes Source: Developed by Drs. Arthur Mittal, Farzana Cervantes, Bladimir Shah and colleagues, with an educational sumaya from [employer]. Thrive Questionnaire Date Thrive assessed: 09/27/24 I am a: Patient What is your living situation today?: I have a steady place to live Within the past 12 months, did the food you bought not last and you didn't have the money to get more?: Never true Within the past 12 months, did you worry whether your food would run out before you got money to buy more?: Never true Do you have trouble paying for medicines?: No Do you have trouble getting transportation to medical appointments?: No Do you have trouble paying your heating and electricity bill?: No Do you have trouble taking care of your child, family member or friend?: No Do you have trouble with day-to-day activities such as bathing, preparing meals, shopping, managing finances, etc.?: No Are you currently unemployed and looking for a job?: No Are you interested in more education?: No Please select the resources that you would like help with: None Currently or been in a relationship where the following occur: No concerns reported THRIVE Score: 0 AUDIT C Alcohol Use Questionnaire (AUDIT-C) 1. How often do you have a drink containing alcohol?: Never Total Score: 0 CHARLY-7 AMB Questionnaire CHARLY-7 Date CHARLY - 7 assessed: 09/27/24 Feeling nervous, anxious, or on edge: 0 = Not at all Not being able to stop or control worryin = Not at all Worrying too much about different things: 0 = Not at all Trouble relaxin = Not at all Being so restless that it is hard to sit still: 0 = Not at all Becoming easily annoyed or irritable: 0 = Not at all Feeling afraid as if something awful might happen: 0 = Not at all Total CHARLY-7 score (0-4 normal; 5-9 mild; 10-14 moderate; 15-21 severe): 0 Source: Developed by Drs. Arthur Mittal, Farzana Cervantes, Bladimir Shah and colleagues, with an educational sumaya from [employer]. CHARLY-7 Assessment Billing CHARLY-7 Assessment Tool: CHARLY-7 Assessment 90834 Review of Systems Const Details: Denies chills, Denies fatigue, Denies fever(s), Denies headache(s) and Denies weakness HEENT Denies change in vision, Denies dizziness, Denies headache(s), Denies hearing loss, Denies nasal congestion, Denies sinus pain, Denies sinus pressure and Denies sore throat Card Denies chest pain, Denies lightheadedness, Denies dyspnea and Denies other (palpitations) Resp Denies cough, Denies dyspnea and Denies wheezing GI Denies abdominal pain, Denies melena, Denies hematochezia, Denies change in bowel habits, Denies dyspepsia and Denies nausea Denies hematuria and Denies dysuria Musc Denies abnormal gait, Denies myalgias, + arthralgias (left knee pain, history of osteoarthritis), Denies numbness and Denies tingling Skin/Breast Denies rash, Denies unusual bruising Other: + Nonhealing wound on the top of the head, + scabbed over areas on right side of face Neuro Denies abnormal gait, Denies dizziness, Denies headache(s), Denies memory loss, Denies numbness, Denies Sensory deficit (Neuro), Denies tingling and Denies w eakness Psych Denies anxiety, Denies depression and Denies memory loss Endo Denies cold intolerance, Denies fatigue, Denies heat intolerance, Denies polydipsia and Denies polyuria Toan/Lymph Denies easy bleeding and Denies easy bruising Aller/Immun Denies wheezing Physical exam (Primary Care) Vital Signs: Last Vital Signs Temp 96.9 F 09/27/24 10:14 BP 112/60 09/27/24 10:14 BMI result Body Mass Index 22.3 Tobacco/Smoking Status: Tobacco use Status Tobacco use date assessed 09/27/24 09/27/24 10:22 Patient Tobacco Use Status Never used Tobacco 09/27/24 10:22 e-Cigarette/Vaping Use Never Used 09/27/24 10:22 PHQ-9: PHQ-9 Score PHQ-9: Total score 0 09/27/24 22:52 Depression Screening Interpretation: Negative Thrive Assessment: Date of Thrive Assessment Date Thrive assessed 09/27/24 09/27/24 10:22 Currently or been in a relationship where the following occur: No concerns reported Const Other: General: no acute distress, well developed, alert and awake Nutritional Appearance: well nourished Orientation/consciousness: patient oriented x3 HENMT Head: Yes normocephalic and same as NPI Ears: hearing grossly normal bilaterally and TM's normal bilaterally General nose exam: Normal external nose present and Normal nares presental Eyes Pupils: Equal, round and reactive pupils present and Pupil accommodation reflex normal EOM: EOMs intact bilaterally Neck Neck: Yes normal visual inspection, Yes no lymphadenopathy and Yes trachea midline Thyroid: Thyroid normal Chest Chest palpation & inspection: normal inspection of the chest Resp Effort & Inspection: normal respiratory effort Auscultation: clear to auscultation bilaterally Cardio Rate: regular rate Rhythm: regular rhythm Heart sounds: S1 normal heart sound present, S2 normal heart sound present, no gallops, no murmurs and no rubs GI Palpation (GI): Abdomen is soft nontender Auscultation: normal bowel sounds General: Yes no CVA tenderness Back/Spine/Pelvis Back: no CVA tenderness Cervical Spine: cervical ROM normal and No Cervical spine tenderness Thoracic/Lumbar Spine: No lumbar tenderness Skin General: warm and dry. Normal skin color. Normal skin turgor same as NPI Nails: normal Neuro General: patient oriented x3, gait normal Cranial nerves: Yes Equal, round and reactive pupils present Cognition (Neuro): normal cognition Gait exam (Neuro): Normal gait present Extrem General: Yes normal to inspection, No edema and No calf tenderness other: left knee without edema/erythema, +ROM with pain, no crepitus Psych Appearance: grossly normal Affect: normal affect Attitude: cooperative Thought process: Normal thought process present Coding Level of Care Code Est Pt Level 3 (12503) Diagnoses Open wound of scalp, unspecified open wound type, initial encounter S01.00XA Encounter type: initial encounter Open wound type: unspecified Osteoarthritis of left knee, unspecified osteoarthritis type M17.12 Osteoarthritis type: unspecified Additional Codes CHARLY-7 Assessment Billing - CHARLY-7 Assessment Tool: CHARLY-7 Assessment 23071 ([id number]) PHQ-9 - 97712 - PHQ-9 Billing: Yes ([id number]) Time Spent (min) 29 Assessment & Plan Assessment & Plan (1) Open scalp wound: Code(s): S01.00XA - Unspecified open wound of scalp, initial encounter Category: Medical Qualifiers: Encounter type: initial encounter Open wound type: unspecified Qualified Code(s): S01.00XA - Unspecified open wound of scalp, initial encounter Plan: Nonhealing wound on the top of scalp. Referral to dermatology Will trial the patient on doxycycline 100 mg b.i.d. x10 days while waiting on dermatology appointment Apply mupirocin 2% t.i.d. (2) Osteoarthritis of left knee: Code(s): M17.12 - Unilateral primary osteoarthritis, left knee Category: Medical Qualifiers: Osteoarthritis type: unspecified Qualified Code(s): M17.12 - Unilateral primary osteoarthritis, left knee Plan: History of osteoarthritis and left knee. Patient is complaining of increased pain in his left knee. No swelling or erythema or injury to the knee noted Left knee x-ray ordered to further evaluate Plan Follow up in 3 months Orders: Orders XR knee LT 3V 09/27/24 M25.562 - Pain in left knee Referrals Dermatology Referral S01.00XA - Unspecified open wound of scalp, initial encou nter Medications: New doxycycline hyclate 100 mg PO BID 20 caps 0RF 10 days mupirocin 2% 1 appl topical TID 50 grams 0RF Discontinued amoxicillin Take 4 capsules 2 hours before procedure -- for endocarditis prophylaxis Discontinued Reason: Patient Completed Course 2,000 mg (4 x 500 mg) PO ONCE 1 day 4 caps 3RF DO NOT TAKE THIS OUT OF HIS MED LIST-Dr. Parikh
[2024-09-27 10:14] VITALS: BP 112/60; TEMP 36.1; BMI 22.3
--- OUTSIDE RECORDS SUMMARY | 2024-09-27 10:52 | XMS_ITS | Clinical Summary ---
Author Organization [facility] Facility Address [address] [place] [id number] Care Team Providers Care Filter Cloth Maker Name Role Phone Unavailable Primary Care Provider Unavailabl e Allergies No known active allergies Medications Anoro Ellipta 62.5-25 MCG/INH aerosol powder INHALE 1 PUFF BY MOUTH DAILY 2 Active traMADol (ULTRAM) 50 MG tablet TAKE 1 TABLET BY MOUTH EVERY 8 HOURS FOR 30 DAYS NEEDED FOR PAIN 2 Active omeprazole (PriLOSEC) [address] capsule Take 20 mg by mouth 1 (one) time each day 2 Active metoprolol tartrate (LOPRESSOR) 50 MG tablet Take 50 mg by mouth 1 Active levETIRAcetam (KEPPRA) 500 MG tablet Take 500 mg by mouth 1 Active furosemide (LASIX) 20 MG tablet Take 20 mg by mouth 1 (one) time each day 2 Active carvedilol (COREG) 6.25 MG tablet TAKE 1 TABLET (6.25 MG) BY MOUTH TWICE A DAY MUST ADMINISTER WITH A MEAL/FOOD 2 Active econazole nitrate 1 % cream PLEASE SEE ATTACHED FOR DETAILED DIRECTIONS 2 Active Aspirin Low Dose 81 MG EC tablet Take 81 mg by mouth 1 (one) time each day 1 Active atorvastatin (LIPITOR) 40 MG tablet Take 40 mg by mouth 1 (one) time each day 1 Active fluticasone HFA (FLOVENT HFA) 110 MCG/ACT inhaler Inhale 1 puff 2 (two) times a day Rinse mouth with water after use to reduce aftertaste and incidence of candidiasis. Do not swallow. 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 (10/18/2021): C spine osteophyte overgrowth s/p surgery in 2003 Chronic kidney disease 10/11/2021 Acute nontraumatic kidney injury 10/11/2021 Dyspnea 10/11/2021 Chronic obstructive pulmonary disease 10/11/2021 Essential (primary) hypertension 10/11/2021 Anxiety 10/11/2021 Gastroesophageal reflux disease 10/11/2021 Immunizations Name Administration Dates Next Due Influenza, Unspecified 06/26/2021,2019,06/10/2019,05/28/2018 ,05/21/2017,06/03/2016 Moderna SARS-COV-2 10/24/2020,09/27/2020 Pneumococcal Conjugate 13-Valent 07/08/2017 Pneumococcal Polysaccharide 06/03/2016 Shingrix 05/05/2018 Zoster 05/06/2018,07/08/2017 Social History Tobacco Use Types Packs/Day Years Used Date Smoking Tobacco: Never Assessed Sex and Gender Information Value Date Recorded Sex Assigned at Not on file Legal Sex Male 12:56 PM EST Gender Identity Not on file Sexual Orientation Not on file Last Filed Vital Signs Vital Sign Reading Time Taken Comments Blood Pressure 127/79 10/18/2021 12:52 PM EST Pulse - - Temperature - - Respiratory Rate - - Oxygen Saturation - - Inhaled Oxygen Concentration - - Weight 72.6 kg (160 lb) 10/18/2021 12:52 PM EST Height - - Body Mass Index - - Plan of Treatment Health Maintenance Due Date Last Done Comments Influenza Vaccine (#1) 2024 , 05/25/2020, 06/10/2019, Additional history exists Pneumococcal Vaccine: 65+ Years Completed 07/08/2017, 06/03/2016 Hepatitis B Vaccine Aged Out No longe r eligible based on patient's age to complete this topic Insurance MEDICARE [facility] MEDICARE [facility]
== END 2024-09-27 10:55 | disposition home or self-care (01) ==
PROVIDERS: PCP Internal Medicine
DX: S01.00XA Unspecified open wound of scalp, initial encounter (principal); M17.12 Unilateral primary osteoarthritis, left knee

== ENCOUNTER → 2024-09-27 11:09 | Outpatient (BNV) | payer MEDICARE, OTHER, SELFPAY | PROVIDERS: PCP Internal Medicine; Visit Provider Radiology Diagnostic Radiology | DX: M25.562 Pain in left knee (principal) | CPT/HCPCS: 73562 ==

== ENCOUNTER 2024-10-19 14:27 | Outpatient (RCR) | payer MEDICARE, OTHER, SELFPAY | END 2024-11-10 10:48 | disposition home or self-care (01) | LOC: HO.WCC 14:27 | PROVIDERS: PCP Internal Medicine; Visit Provider Surgery | DX: L98.9 Disorder of the skin and subcutaneous tissue, unspecified (principal); Z79.891 Long term (current) use of opiate analgesic; Z79.01 Long term (current) use of anticoagulants; Z79.899 Other long term (current) drug therapy | CPT/HCPCS: 11106; 88304; 88305; 99212 ==

== ENCOUNTER → 2024-10-22 23:59 | Outpatient (BNV) | payer MEDICARE, OTHER, SELFPAY | PROVIDERS: PCP Internal Medicine; Visit Provider Internal Medicine | DX: I48.92 Unspecified atrial flutter (principal); J44.9 Chronic obstructive pulmonary disease, unspecified; N18.30 Chronic kidney disease, stage 3 unspecified | CPT/HCPCS: G0180 ==

== ENCOUNTER 2024-11-12 10:55 | Outpatient (AMB) | payer MEDICARE, OTHER, SELFPAY ==
--- NOTE | 2024-11-12 11:04 | A.OFFVIS_ITS ---
Intake Visit Reasons: New Pt - left knee pain Intake Note: Jose Elias is a 89 year old male who presents today as a new patient for a evaluation of his left knee pain. Patient reports ongoing pain for about a year. He states that his pain is though out the whole knee and moves to the back of his knee. Patient notices that his pain is worse when he is bending, walking, using the stairs. He hasn't tried anything to help with his pain but he is feeling better today. Allergies morphine Allergy (Unknown, Verified 11/12/24 11:04) nausea and vomiting oxycodone Allergy (Unknown, Verified 11/12/24 11:04) nausea and vomiting HPI HPI New Pt - left knee pain: Details: Mr. Mars is an 89-year-old male who presents to the office today on a motorized scooter for evaluation of left knee pain. He reports the pain has been present for the past year. He denies any injury or trauma. His pain is worse with weight-bearing activities. He does not have any specific area of pain. He reports he may have had a cortisone injection in the past that helped him. [facility] Medical History Chronic kidney disease, stage III (moderate) HFrEF (heart failure with reduced ejection fraction) Impaired fasting glucose Overweight (BMI 25.0-29.9) Vitamin D deficiency Benign essential hypertension DISH (diffuse idiopathic skeletal hyperostosis) COPD (chronic obstructive pulmonary disease) Pure hypercholesterolemia GERD without esophagitis Epilepsy Keratotic lesion Low back pain Left knee pain Surgical History Hx of cervical discectomy Aortic valve replaced History of carpal tunnel release History of inguinal hernia repair S/P hip arthroscopy Family History Father Cancer Mother Medical history unknown Social History Housing: House Alcohol intake: former Patient Tobacco Use Status: Never used Tobacco e-Cigarette/Vaping Use: Never Used Second Hand Smoke Exposure: Yes service: No Current occupational status: retired Cognitive needs: Yes (scooter, wheelchair) Hearing needs: No Vision needs: Yes (reading glasses) Review of Systems Const All systems reviewed & are unremarkable except as noted in HPI and below Physical Exam Const General: cooperative, healthy appearing and no acute distress Resp Effort & Inspection: normal respiratory effort and able to speak in complete sentences Cardio Rate: regular rate Peripheral pulses: Peripheral pulses 2+ throughout Skin Lesions: no lesions Rashes: no rashes Extrem Other: Left knee: Normal to inspection. No ecchymosis, erythema, or joint effusion. No tenderness to palpation along the medial or lateral joint lines. Range of motion 0-100 degrees. Crepitus felt with range of motion. NVI. Office Procedures AMB Joint Injection/Aspiration Joint Injection/Aspiration Primary Site: left knee Prep: site was prepped using aseptic technique, ethochloride spray was applied and injection warnings given Injected: 80 mg of, DepoMedrol, with 8 mL of (2% plain lido ) and in the joint Approach Used: anterolateral Procedure: The patient tolerated the procedure well, but had some pain with the injection and there was some relief with the local anesthesia Coding 97124 - Large joint Procedure code (CPT) selection complete Assessment & Plan Assessment & Plan (1) Osteoarthritis of left knee: Code(s): M17.12 - Unilateral primary osteoarthritis, left knee Category: Medical Qualifiers: Osteoarthritis type: unspecified Qualified Code(s): M17.12 - Unilateral primary osteoarthritis, left knee Plan Mr. Mars is an 89-year-old male who presents to the office today on a motorized scooter for evaluation of left knee pain. He reports the pain has been present for the past year. He denies any injury or trauma. His pain is worse with weight-bearing activities. He does not have any specific area of pain. He reports he may have had a cortisone injection in the past that helped him. While in the office today we discussed the role of cortisone injections. The patient was offered a cortisone injection in the left knee with 80 mg of DepoMedrol. The patient was explained the risks, benefits, and alternatives to receiving this injection. After receiving consent for the injection, the patient had the procedure done while in the office today. The patient tolerated the procedure well with no complications. Follow-up will be p.r.n., or sooner if needed X-rays of the left knee which were obtained on 09/27/2024 as well as additional images obtained in the office today and were reviewed by me, Asya Flores, revealed osteoarthritis of the left knee. No acute fracture dislocation. Orders: Orders XR knee standing BI Today M17.12 - Unilateral primary osteoarthritis, left knee XR knee RT 3V Today M25.569 - Pain in unspecified knee Coding Level of Care Code New Pt Level 3 (30430) Diagnoses Osteoarthritis of left knee, unspecified osteoarthritis type M17.12 Osteoarthritis type: unspecified CPT Codes Coding - 65934 Large joint: 09238 - Large joint ([id number])
--- OUTSIDE RECORDS SUMMARY | 2024-11-12 13:19 | XMS_ITS | Clinical Summary ---
Author Organization [facility] Facility Address [address] [place] [address] Care Team Providers Care Traffic Monitor Specialist Name Role Phone Unavailable Primary Care Provider [...] age to complete this topic Insurance MEDICARE [facility] MEDICARE [facility]
== END 2024-11-12 11:46 | disposition home or self-care (01) ==
LOC: HO.HOS 10:55
PROVIDERS: PCP Internal Medicine; Visit Provider Physician Assistant
DX: M17.12 Unilateral primary osteoarthritis, left knee (principal)
CPT/HCPCS: 20610; 99203

== ENCOUNTER 2024-11-12 11:00 | Outpatient (REF) | payer MEDICARE, OTHER, SELFPAY ==
--- NOTE | ~2024-11-12 | XR_ITS ---
EXAMINATION: XR KNEE AP STANDING CLINICAL INFORMATION: M17.12 - Unilateral primary osteoarthritis, left knee COMPARISON: Correlated to September 27, 2024. TECHNIQUE: AP bilateral standing view of the knees was obtained. FINDINGS: Complete loss of the medial and lateral compartment joint spaces of the left knee with associated articular surface sclerosis of the tibial plateau and femoral condyles. Asymmetric joint space narrowing involving the medial and lateral compartment right knee with chondrocalcinosis. Osteopenia versus the process. No acute cortical disruption. Vascular calcifications. XR/XR knee standing BI IMPRESSION: Bicompartmental osteoarthrosis, severe and worsening, left knee. Bicompartmental osteoarthrosis, mild to moderate, right knee. Consider CPPD. Atherosclerosis disease, peripheral. Electronically signed by: Jacky Cunningham MD 11/15/2024 08:50 AM EDT
== END 2024-11-12 11:01 | disposition home or self-care (01) ==
LOC: HO.HOSX 11:00
PROVIDERS: Visit Provider Physician Assistant
DX: M17.12 Unilateral primary osteoarthritis, left knee (principal); M25.561 Pain in right knee
CPT/HCPCS: 20610; 73565; 99202; J1010; J2003

== ENCOUNTER → 2024-11-12 11:01 | Outpatient (BNV) | payer MEDICARE, OTHER, SELFPAY | PROVIDERS: Visit Provider Radiology Diagnostic Radiology | DX: M17.0 Bilateral primary osteoarthritis of knee (principal); I70.203 Unspecified atherosclerosis of native arteries of extremities, bilateral legs | CPT/HCPCS: 73565 ==

== ENCOUNTER → 2024-12-03 23:59 | Outpatient (BNV) | payer MEDICARE, OTHER, SELFPAY | PROVIDERS: PCP Internal Medicine; Visit Provider Internal Medicine | DX: J44.9 Chronic obstructive pulmonary disease, unspecified (principal); I50.22 Chronic systolic (congestive) heart failure; N18.32 Chronic kidney disease, stage 3b | CPT/HCPCS: G0179 ==

== ENCOUNTER → 2025-02-17 23:59 | Outpatient (BNV) | payer MEDICARE, OTHER, SELFPAY | PROVIDERS: PCP Internal Medicine; Visit Provider Internal Medicine | DX: J44.9 Chronic obstructive pulmonary disease, unspecified (principal); I48.92 Unspecified atrial flutter | CPT/HCPCS: G0179 ==